=== PATIENT | female | born 2000 | race Caucasian/White ===

== ENCOUNTER 2024-08-26 07:32 | Inpatient (IN) ==
--- OUTSIDE RECORDS SUMMARY | 2024-08-26 07:37 | External Medical Summary | Summary of Care ---
Author Name Unknown Organization [facility] Address [address] [place] [address] Phone [phone] Care Team Providers Care Transport Tank Technician Name Role Phone Brianluis Vashti Shabnam MEAD Primary Care Provider Reason for Visit * Reason Onset Date Comments Appointment 08/24/2024 Encounter Details Date Type Department Care Team (Late st Contact Info) Description 08/24/2024 Telephone Gynecology/Obstetrics [facility] [address] [place] [address] Bryan Pretty MD [address] [place] [address] Appointment Allergies Active Allergy Reactions Criticality Noted Date Comments Justicia Adhatoda High 08/18/2024 Other Reaction(s): Throat swelling Peanut Oil 01/06/2001 Throat and eye swelling Peanut-Containing Drug Products 09/14/2019 Peanuts and tree nuts documented as of this encounter (statuses as of 08/24/2024) Medications valACYclovir HCl 1 GM Oral Tablet (Valtrex)Indicatio ns: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 21 Tablet 5 3 Active Ventolin HFA 108 (90 Base) MCG/ACT Inhalation Aerosol Solution Inhale 2 Puffs by mouth every 4 hours as needed for Wheezing. 18 g 3 4 Active EPINEPHrine 0.3 MG/0.3ML Injection Solution Auto-injector (Autoinjector)Marysol cations:Allergy to peanuts USE ONE INJECTION INTO THIGH FOR SEVERE ALLERGIC REACTION. READ DIRECTIONS. GO TO THE ER 2 Each 5 4 Active + Complete Multi 0.267 & 373 MG Oral Therapy Pack Take 1 Tablet by mouth every evening. 30 Each 11 4 Active Ondansetron 4 MG Oral Tablet Disintegrating (Zofran)Indication s: related nausea, antepartum Place 1 Tablet on tongue every 8 hours as needed for Nausea. dissolve on tongue. 30 Tablet 1 4 Active Docusate Sodium 100 MG Oral Capsule (Colace) Take 1 Capsule by mouth in the morning and 1 Capsule before bedtime. Active Famotidine 20 MG Oral Tablet (Pepcid) Take 1 Tablet by mouth in the morning and 1 Tablet before bedtime. 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 @ [facility] Dysplasia of cervix, low grade (JONE 1) 4 Overview (04/07/2024): Repeat pap 2024 Supervision of normal first 01/27/2024 Maternal asthma complicating 4 URI with cough and congestion 12/26/2023 Acne vulgaris 11/06/2023 Abdominal bloating with cramps 11/06/2023 Diarrhea 11/06/2023 Moderate persistent asthma without complication 09/28/2022 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 Estimated Date of Delivery Comme nts Yes 08/29/2024 Based on last me nstrual period of 11/23/2023 (Exact Date) documented as of this encounter (statuses as of 08/24/2024) Resolved Problems Problem Noted Date Diagnosed Date Resolved Date LGSIL on Pap smear of cervix 02/03/2024 04/07/2024 Less than 8 weeks gestation of 12/26/2023 01/27/2024 Moderate persistent asthma w ith acute exacerbation 02/25/2020 09/28/2022 Malaise and fatigue 02/25/2020 04/16/20 Close exposure to COVID-19 virus 02/25/2020 10/07/2020 Tree nut allergy 01/27/2019 04/16/2020 Mild intermittent asthma 01/12/2019 Mixed rhinitis 10/21/2017 04/16/2020 Asthma, mild persistent 08/27/201307/09 Anaphylaxis 05/25/2013 07/31/2018 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 ADVANCE DIRECTIVE INFORMATION 07/05/2005 07/31/2018 Overview (07/05/2005): Not applicable (under age of 18) Headache 11/23/2004 07/31/2018 Overview (09/28/2015): ICD-10 update of inactive term NONALLERGIC RHINITIS 11/23/2004 018 Chronic sinusitis 11/23/2004 07/31/2018 documented as of this encounter (statuses as of 08/24/2024) Immunizations Name Administration Dates Next Due COVID-19 mRNA, LNP-s, No Pre serve, 2-Dose Series ([employer]) 04/28/2021,04/06/2021 HPV Vaccine, 4-Valent 07/17/2010,03/14/2010,070 01/2010 Meningococcal Conjugate Vacc ine (Menactra/Menveo) 01/26/2015,01/11/2010 PPD 02/02/2020 Pneumococcal Polysaccharide PPV23 (Pneumovax) 07/31/2018 Seasonal Influenza Vac., MDV , IM, 0.5 mL (Fluzone) 04/13/2014,05/04/2011,04/20/2010,04/15,04/13/2008,06/12/2007,05/15/2007 Seasonal Influenza, PF, 6 M & above, IM , (FluLaval or Fluzone) 04/14/2020,05/12/2019,04/01/2018,03/27 Seasonal Influenza, Quadriva lent, No Preserve, IM 04/17/2016,04/18/2015 TDAP (age 10 and older)(Boostrix) 02/02/2020 TDAP, Age 7 and older, IM (Adacel) 06/18/2024, Varicella Vaccine (Chicken Pox) 02/07/2007 documented as of this encounter Social History Tobacco Use Types Packs/Day Years Used Date Smoking Tobacco: Never Passive Smoke Exposure: Never Smokeless Tobacco: Never Comments:no passive smoke Alcohol Use Standard Drinks/Week Comments Not Currently 0 (1 standard drink = 0.6 oz pur e alcohol) PHQ-2 Answer Date Recorded PHQ Adult Total Score 0 10/27/2020 Hunger Vital Sign Answer Date Recorded Within the past 12 months, y ou worried that your food would run out before you got the money to buy more. Never true 11/06/19 24 Within the past 12 months, t he food you bought just didn't last and you didn't have money to get more. Never true 11/06/2023 Ages [place] Depression Scale Answer Date Recorded Ages [place] Depression Scale Total 0 01/27/2024 The thought of harming myself has occurred to me . Never 01/27/2024 Childcare Answer Date Recorded Do you feel overwhelmed with taking care of a child, family member or friend? No 11/06/2023 Does your family need help f inding childcare? (Household - for ages 0-17 years) Not on file 11/06/2023 Clothing Answer Date Recorded Have you been unable to get clothing when it was really needed? No 11/06/2023 Is your family able to get c lothes or diapers when needed? (Household - for ages 0-17 years) Not on file 11/06/2023 Personal Safety Answer Date Recorded Do you feel unsafe or have concerns for your saf ety? No 11/06/2023 Do you have concerns for you r family's safety? (Household - for ages 0-17 years) Not on file 11/06/2023 Utilities Answer Date Recorded Do you have trouble paying y our heating, water, or electric bill? No 11/06/2023 Is your family able to pay t he heat, water, or electric bill? (Household - for ages 0-17 years) Not on file 11/06/2023 Does your family have access to good internet? (Household - for ages 0-17 years) Not on file 11/06/2023 Employment Status Answer Date Recorded Are you unemployed or without regular income? No 11/06/2023 Does the household have a re gular source of income? (Household - for ages 0-17 years) Not on file 11/06/2023 Social Connections Answer Date Recorded How often do you feel lonely or isolated from th ose around you? Never 11/06/2023 Financial Resource Strain Answer Date R ecorded Do you have any trouble payi ng for your medications, or do you think you might in the future? No 11/06/2023 Does your family have troubl e paying for medicine? (Household - for ages 0-17 years) Not on file 11/06/2023 Transportation Needs Answer Date Record ed READ ONLY Do you have troubl e getting a ride to medical visits or work? Never True 11/06/2023 Does your family have a hard time getting a ride to doctors visits? (Household - for ages 0-17 years) Not on file 11/06/2023 Has lack of transportation k ept you from medical appointments, meetings, work, or from getting things needed for daily living? Check all that apply. (Adult - for ages 18 years and over) Not on file 11/06/2023 Do you (or your family) have trouble finding or paying for a ride (transportation)? (Household - for ages 0-17 years) Not on file 11/06/2023 Housing Stability Answer Date Recorded Do you currently live in a s helter or have no steady place to sleep at night? No 11/06/2023 READ ONLY Do you think you a re at risk of becoming homeless? No 11/06/2023 Does your family worry about paying for your home or becoming homeless? (Household - for ages 0-17 years) Not on file 0 11/06/2023 Are you homeless or worried that you might be in the future? (Adult - for ages 18 years and over) Not on file Are you (or your family) carina eless or worried that you might be in the future? (Household - for ages 0-17 years) Not on file Food Insecurity Answer Date Recorded Do you need food for this week? No 11/06/2023 Are you able to get enough f ood for your family? (Household - for ages 0-17 years) Not on file 11/06/2023 Does your family need food t his week? (Household - for ages 0-17 years) Not on file 11/06/2023 Do you always have enough fo od for your family? (Household - for ages 0-17 years) Not on file 11/06/2023 Food Insecurity Answer Date Recorded Within the past 12 months, y ou worried that your food would run out before you got the money to buy more. Never true 11/06/19 24 Within the past 12 months, t he food you bought just didn't last and you didn't have money to get more. Never true 11/06/2023 Do you need food for this week? 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 IOL moved to 08/26/24. TC to patient and she is agreeable, aware of possibility of being bumped dt early elective induction, she understands. She will keep appointment as scheduled for tomorrow. documented in this encounter Plan of Treatment Upcoming Encounters Date Type Department Care Team (Late st Contact Info) Description 08/25/2024 8:30 AM EST Office Visit Gynecology/Obstetrics [facility] [address] [place] [address] Jacqueline Rm CRNP [address] [place] [phone] Health Maintenance Due Date Last Done Comments Pneumococcal Vaccine: Pediatrics (0 to 5 Years) and At-Risk Patients (6 to 18 Years and 19+ Years) (2 of 2 - PCV) 07/31/2019 07/31/2018 COVID-19 Vaccine (3 - Pfizer risk series) 05/26/2021 04/28/2021, 04/06/2021 Depression Screening 10/27/2021 10/27/2020 Influenza Vaccine (FLU shot) (#1) 2024 04/14/2020, 05/12/2019, 04/01/2018, Additional history exists Pap Smear 01/26/2027 01/27/2024 DTap/Tdap Vaccines (9 - Td or Tdap) 06/18/2034 06/18/2024, 02/02/2020, 01/11/2010, Additional history exists Hepatitis B Vaccine Completed 05/19/1999, 1998, 1998 HPV (Gardasil) Vaccine Completed 1, 03/14/2010, 01/11/2010 MENINGOCOCCAL (MENACTRA/MENVEO) Completed 01/26/2015, 01/11/2010, 01/11/2010 Gonorrhea / Chlamydia Screen Discontinued 01/27/2024, 02/04/2020, 09/27/2016 Meningitis B Vaccine (Bexsero/Trumemba) Aged Out No longer eligible based on patient's age to complete this topic documented as of this encounter Goals Goal Patient Goal Type Associated Problems Recent Progress Patient-Stated? Author Reminders Care Plan OB Reminders No Too, Provider documented as of this encounter Medical Devices Not on filedocumented as of this encounter Additional Health Concerns Active Problems Noted Date Diagnosed Date OB Reminders 07/10/2024 documented as of this encounter Care Teams Transport Tank Technician Relationship Specialty Start Date End Date Vashti Bolden CRNP [address] [place] [phone] PCP - General Nurse Practitioner 03/22/21 documented as of this encounter
--- OUTSIDE RECORDS SUMMARY | 2024-08-26 07:37 | External Medical Summary | Summary of Care ---
Author Name Unknown Organization [facility] Address [address] [place] [address] Phone [phone] Care Team Providers Care Refractory Specialist Name Role Phone Vashti Bolden Primary Care Provider Reason for Visit * Reason Onset Date Comments Test Results 08/21/2024 Encounter Details Date Type Department Care Team (Late st Contact Info) Description 08/21/2024 Telephone Family Practice [facility] [address] [facility] [place] [phone] Vashti Bolden CRNP [address] [facility] [place] [address] Test Results Allergies Active Allergy Reactions Criticality Noted Date Comments Justicia Adhatoda High 08/18/2024 Other Reaction(s): Throat swelling Peanut Oil 01/06/2001 Throat and eye swelling Peanut-Containing Drug Products 09/14/2019 Peanuts and tree nuts documented as of this encounter (statuses as of 08/21/2024) Medications valACYclovir HCl 1 GM Oral Tablet [...] as of this encounter (statuses as of 08/21/2024) Active Problems Problem Noted Date Diagnosed Date 38 weeks gestation of 08/20/2024 Leukocytosis 08/20/2024 Carrier of group B Streptococcus 08/12/2024 INFORMATION 07/10/2024 Overview (07/10/2024): 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 Never true 11/06/2023 [place] Depression Scale Answer Date Recorded [place] Depression Scale Total 0 01/27/2024 The thought [...] encounter Miscellaneous Notes * Telephone Encounter - Vashti Bolden CRNP - 08/21/2024 3:00 PM EST Patient aware of labs results. No questions Katelyn, ERICA, ALYCE [facility] Family Medicine documented in this encounter Plan of Treatment Upcoming Encounters Date Type Department Care Team (Late st Contact Info) Description 08/25/2024 8:30 AM EST Office Visit Gynecology/Obstetrics [facility] [address] [place] [address] Jacqueline Rm CRNP [address] [place] [phone] Health Maintenance Due Date Last Done Comments [...] Author Reminders Care Plan OB Reminders No Myccharlottet, Provider documented as of this encounter Medical Devices Not on filedocumented as of this encounter Additional Health Concerns Active Problems Noted Date Diagnosed Date OB Reminders 07/10/2024 documented as of this encounter Care Teams Refractory Specialist Relationship Specialty Start Date End Date Vashti Bolden CRNP [address] [place] [address] PCP - General Nurse Practitioner 03/22/21 documented as of this encounter
--- OUTSIDE RECORDS SUMMARY | 2024-08-26 07:37 | External Medical Summary | Summary of Care ---
Author Name Unknown Organization [facility] Address [address] [place] [address] Phone [phone] Prov[address] Care Court Security Officer Name Role Phone Vashti Bolden Primary Care Provider Reason for Visit * Reason Comments Emergency Department Follow-Up Pt here f or an ER f/u from [facility] from 08/18/24 for chest pain & shortness of breath. Pt still not feeling better. Encounter Details Date Type Department Care Team (Late st Contact Info) Description 08/20/2024 3:20 PM EST Office Visit Family Practice [facility] [address] [facility] [place] [address] Vashti Bolden CRNP [address] [facility] [place] [address] Chest pain, unspecified type*; Shortness of breath; Maternal asthma complicating ; Leukocytosis, unspecified type; 38 weeks gestation of Allergies Active Allergy Reactions Criticality Noted Date [...] 1 Tablet before bedtime. 21 Tablet 5 09/29/19 23 Active Ventolin HFA 108 (90 Base) MCG/ACT Inhalation Aerosol Solution Inhale 2 Puffs by mouth every 4 hours as needed for Wheezing. 18 g 3 11/06/19 24 Active EPINEPHrine 0.3 MG/0.3ML Injection Solution Auto-injector (Autoinjector)Marysol cations:Allergy to peanuts USE ONE INJECTION INTO THIGH FOR SEVERE ALLERGIC REACTION. READ DIRECTIONS. GO TO THE ER 2 Each 5 11/06/19 24 Active + Complete Multi 0.267 & 373 MG Oral Therapy Pack Take 1 Tablet by mouth every evening. 30 Each 11 11/06/19 24 Active Ondansetron 4 MG Oral Tablet Disintegrating (Zofran)Indication s: related nausea, antepartum Place 1 Tablet on tongue every 8 hours as needed for Nausea. dissolve on tongue. 30 Tablet 1 02/24/20 24 Active Docusate Sodium 100 MG Oral Capsule (Colace) Take 1 Capsule by mouth in the morning and 1 Capsule before bedtime. Active Famotidine 20 MG Oral Tablet (Pepcid) Take 1 Tablet by mouth in the morning and 1 Tablet before bedtime. 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 Never true 11/06/2023 Enterprise Depression Scale Answer Date Recorded Enterprise Depression Scale Total 0 01/27/2024 The thought [...] on file documented as of this encounter Last Filed Vital Signs Vital Sign Reading Time Taken Comments Blood Pressure 107/76 08/20/2024 3:28 PM EST Pulse 108 08/20/2024 3:28 PM EST Temperature 37 C (98.6 F) 08/20/2024 3:28 PM EST Respiratory Rate 16 08/20/2024 3:28 PM EST Oxygen Saturation 98% 08/20/2024 3:28 PM EST Inhaled Oxygen Concentration - - Weight 77.7 kg (171 lb 6.4 oz) 08/20/2024 3:28 P M EST Height 162.6 cm (5' 4") 08/20/2024 3:28 PM EST Body Mass Index 29.42 08/20/2024 3:28 PM EST documented in this encounter Progress Notes * Vashti Bolden CRNP - 08/20/2024 3:47 PM EST URI Family Medicine Visit CC: Chief Complaint Patient presents with Emergency Department Follow-Up Pt here for an ER f/u from [facility] from 08/18/24 for chest pain & shortness of breath. Pt still notfeeling better. History of Present Illness: Paxton Tabares is a 23 year old female presenting for URI symptoms. She has had increased sob, terrible cough that started this am. She had ER visit with chest x ray, chest CT and labs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 Tobacco Use Smoking status: Never Passive exposure: Never Smokeless tobacco: Never Tobacco comments: no passive smoke Vaping Use Vaping status: Never Used Substance and Sexual Activity Alcohol use: Not Currently Drug use: No Sexual activity: Yes Partners: Male Other Topics Concern Not on file Social History Narrative [employer] [place] INFORMATION ENIVIRONMENTAL HISTORY: House: Two Story Type of Heating System: Electric Air Conditioning: Yes Bedrooms and Living room Basement: Unfinished, Dampness, Dehumidifier and No evidence mold, mildew Home have cockroaches: No Irritants in the home: Passive Smoke and Scented Candles Patient's bedroom: FLOOR: second TYPE OF MATTHIAS: Carpeting Beds: AMOUNT : 1 TYPE OF BEDS: Mattress and Box spring Pillows: AMOUNT: 1 TYPE OF PILLOWS: Synthetic (hypoallergenic, polyester) Bedroom contains: Stuffed animals, Toys, Bookshelves/Books and Collectibles (faviola nacs) Pets: 1 dog(s); 1 rabbit Lives on a farm: No Not missing excessive school because of allergy symptoms. Entered By: Jose Smith MD 05/25/2013 Social Needs Financial Resource Strain: Low Risk (11/06/2023) Financial Resource Strain Do you have any trouble paying for your medications, or do you think you might in the future? (Adult - for ages 18 years and over): No Does your family have trouble paying for medicine? (Household - for ages 0-17 years): Not on file Food Insecurity: No Food Insecurity (11/06/2023) Food Insecurity Worried About Running Out of Food in the Last Year: Never true Ran Out of Food in the Last Year: Never true Do you need food for this week? (Adult - for ages 18 years and over): No Transportation Needs: No Transportation Needs (11/06/2023) Transportation Needs Do you have trouble getting a ride to medical visits or work? (Adult - for ages 18 years and over):Never True Does your family have a hard time getting a ride to doctors visits? (Household - for ages 0-17 years): Not on file Has lack of transportation kept you from medical appointments, meetings, work, or from getting things needed for daily living? Check all that apply. (Adult - for ages 18 years and over): Not on file Do you (or your family) have trouble finding or paying for a ride (transportation)? (Household - for ages 0-17 years): Not on file Social Connections: Socially Integrated (11/06/2023) Social Connections How often do you feel lonely or isolated from those around you? (Adult - for ages 18 years and over): Never Housing Stability: Low Risk (11/06/2023) Housing Stability Do you currently live in a senior care or have no steady place to sleep at night? (Adult - for ages 18 years and over): No Do you think you are at risk of becoming homeless? (Adult - for ages 18 years and over): No Does your family worry about paying for your home or becoming homeless? (Household - for ages 0-17 years): Not on file Are you homeless or worried that you might be in the future? (Adult - for ages 18 years and over): Not on file Are you (or your family) homeless or worried that you might be in the future? 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 Ondansetron 4 MG Oral Tablet Disintegrating (Zofran) Place 1 Tablet on tongue every 8 hours as needed for Nausea. dissolve on tongue. 30 Tablet 1 EPINEPHrine 0.3 MG/0.3ML Injection Solution Auto-injector (Autoinjector) USE ONE INJECTION INTO THIGH FOR SEVERE ALLERGIC REACTION. READ DIRECTIONS. GO TO THE ER 2 Each 5 + Complete Multi 0.267 & 373 MG Oral Therapy Pack Take 1 Tablet by mouth every evening. 30 Each 11 Ventolin HFA 108 (90 Base) MCG/ACT Inhalation Aerosol Solution Inhale 2 Puffs by mouth every 4 hours as needed for Wheezing. 18 g 3 valACYclovir HCl 1 GM Oral Tablet (Valtrex) Take 1 Tablet by mouth in the morning and 1 Tablet at noon and 1 Tablet before bedtime. 21 Tablet 5 No current facility-administered medications for this visit. Review of patient's allergies indicates: Allergen Reactions Justicia Adhatoda Other Reaction(s): Throat swelling Peanut Oil Throat and eye swelling Peanut-Containing Drug Products Peanuts and tree nuts Most Recent Immunizations Administered Date(s) Administered COVID-19 mRNA, LNP-s, No Preserve, 2-Dose Series (Akosha) 04/28/2021 DTaP - Dipth/Tet/Acell Pertussis (Infanrix), Peds 01/21/2004 HIB PRP-T, 4 Dose, PF, IM (Hiberix, ActHib) 11/17/1999 HPV Vaccine, 4-Valent 07/17/2010 Hepatitis B, 0-19 yrs 05/19/1999 IPV - Polio Virus Vaccine (Inact) 01/21/2004 MMR - Measles/Mumps/Rubella Vaccine 01/21/2004 Meningococcal Conjugate Vaccine (Menactra/Menveo) 01/26/2015 PPD 02/02/2020 Pneumococcal Polysaccharide PPV23 (Pneumovax) 07/31/2018 Seasonal Influenza Vac., MDV, IM, 0.5 mL (Fluzone) 04/13/2014 Seasonal Influenza, PF, 6 M & above, IM , (FluLaval or Fluzone) 04/14/2020 Seasonal Influenza, Quadrivalent, No Preserve, IM 04/17/2016 TDAP (age 10 and older)(Boostrix) 02/02/2020 TDAP, Age 7 and older, IM (Adacel) 06/18/2024 Varicella Vaccine (Chicken Pox) 02/07/2007 Review of Systems: Review of Systems Constitutional: Positive for fatigue. Respiratory: Positive for cough and shortness of breath. Cardiovascular: Positive for chest pain. Neurological: Positive for headaches. Negative for dizziness and syncope. Physical Exam: BP 107/76 (BP Site: Left Arm, BP Position: Sitting, BP Cuff Size: Regular) | Pulse 108 | Temp 98.6 F (37 C) (Tympanic) | Resp 16 | Ht 5' 4" (1.626 m) | Wt 171 lb 6.4 oz (77.7 kg) | LMP 11/23/2023(Exact Date) | SpO2 98% | BMI 29.42 kg/m | BSA 1.87 m Physical Exam HENT: Head: Normocephalic. Cardiovascular: Rate and Rhythm: Normal rate and regular rhythm. Pulmonary: Effort: Pulmonary effort is normal. Breath sounds: Normal breath sounds. Neurological: General: No focal deficit present. Mental Status: She is alert and oriented to person, place, and time. Psychiatric: Mood and Affect: Mood normal. Behavior: Behavior normal. Thought Content: Thought content normal. Judgment: Judgment normal. Assessment and Plan: 1. Chest pain, unspecified type (Primary) With laying down Currently 38 weeks CTPE negative Duplex ultrasound negative Chest x ray clear Hx of gerd- add pepcid- med use and precautions reviewed 2. Shortness of breath Feels tightness but not improved with neb Lungs clear Suspected realted to pressure from 3. Maternal asthma complicating CONTINUE ALBUTEROL PRN 4. Leukocytosis, unspecified type SUSPECTED related to recheck - CBC WITH WBC DIFFERENTIAL AND ANEMIA REFLEX WORKUP; Future 5. 38 weeks gestation of FEELING MOVEMENT NO DISCHARGE OR CRAMPING I have advised the patient to call our office incase of any worsening or new symptoms. A total of 40 minutes were spent with the patient, more than half in [id number] explanation and discussion of the condition and treatment and answering questions. Katelyn, ERICA, [facility] Family Medicine documented in this encounter Plan of Treatment Upcoming Encounters Date Type Department Care Team (Late st Contact Info) Description 08/25/2024 8:30 AM EST Office Visit Gynecology/Obstetrics [facility] [address] [place] [address] Jacqueline Rm CRNP [address] [facility] [place] [address] Health Maintenance Due Date Last Done Comments [...] Author Reminders Care Plan OB Reminders No Mychart, Provider documented as of this encounter Medical Devices Not on filedocumented as of this encounter Visit Diagnoses Diagnosis Chest pain, unspecified type- Primary Shortness of breath Maternal asthma complicating Other current maternal conditions classifiable elsewhere, complicating , childbirth, or the puerperium, unspecified as to episode of care Leukocytosis, unspecified type 38 weeks gestation of state, incidental documented in this encounter Additional Health Concerns Active Problems Noted Date Diagnosed Date OB Reminders 07/10/2024 documented as of this encounter Care Teams Court Security Officer Relationship Specialty Start Date End Date Vashti Bolden CRNP [address] [place] [address] PCP - General Nurse Practitioner 03/22/21 documented as of this encounter
--- OUTSIDE RECORDS SUMMARY | 2024-08-26 07:37 | External Medical Summary | Summary of Care ---
Author Name Unknown Organization [facility] Address [address] [place] [address] Phone [phone] Care Team Providers Care Mill Attendant Name Role Phone Vashti Bolden Primary Care Provider Reason for Visit * Reason Comments Return Visit Encounter Details Date Type Department Care Team (Late st Contact Info) Description 08/25/2024 8:30 AM EST [facility] [address] [place] [address] BackerJacqueline CRNP [address] [place] [address] Encounter for supervision of normal first in third trimester*; Maternal asthma complicating ; INFORMATION; Carrier of group B Streptococcus Allergies Active Allergy Reactions Criticality Noted Date Comments Lorainea Adhremigioda High 08/18/2024 Other Reaction(s): Throat swelling Peanut Oil 01/06/2001 Throat and eye swelling Peanut-Containing Drug Products 09/14/2019 Peanuts and tree nuts documented as of this encounter (statuses as of 08/25/2024) Medications valACYclovir HCl 1 GM Oral Tablet [...] as of this encounter (statuses as of 08/25/2024) Active Problems Problem Noted Date Diagnosed Date 38 weeks gestation of 08/20/2024 Leukocytosis 08/20/2024 Carrier of group B Streptococcus 08/12/2024 INFORMATION 07/10/2024 Overview (07/10/2024): 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 Never true 11/06/2023 Woden Depression Scale Answer Date Recorded Woden Depression Scale Total 0 01/27/2024 The thought [...] No 11/06/2023 Does the household have a [facility] source of income? (Household - for ages [...] Sign Reading Time Taken Comments Blood Pressure 104/70 08/25/2024 8:34 AM EST Pulse - - Temperature - - Respiratory Rate - - Oxygen Saturation - - Inhaled Oxygen Concentration - - Weight 79.8 kg (176 lb) 08/25/2024 8:34 AM EST Height - - Body Mass Index 30.21 08/20/2024 3:28 PM EST documented in this encounter Progress Notes * Jacqueline Rm CRNP - 08/25/2024 8:44 AM EST 39w3d Baby is moving well. No regular ctx or LOF/bleeding. Respiratory symptoms mostly the same, does have a daily inhaler to use. Reports WBCs have come down. Well-appearing in the office. Induction is tomorrow, discussed what to expect. Cephalic, EFW 6.5 lbs per Marcos's. Return , call sooner prn. ALYCE Morley * Rosalind Salmon LPN - 08/25/2024 8:34 AM EST 39w3d Deneis vaginal bleeding/rom + movement No new concerns documented in this encounter Plan of Treatment Upcoming Encounters Date Type Department Care Team (Late st Contact Info) Description 09/17/2024 11:30 AM EDT Telemedicine [facility] [address] [place] [address] Olimpia Lopez CRNP [address] [place] [address] 10/06/2024 9:00 AM EDT Office Visit [facility] [address] [place] [address] Olimpia Lopez CRNP [address] [place] [address] Health Maintenance Due Date Last Done Comments [...] Author Reminders Care Plan OB Reminders No Ros[place]art, Provider documented as of this encounter Medical Devices Not on filedocumented as of this encounter Visit Diagnoses Diagnosis Encounter for supervision of normal first in third trimester- Primary Supervision of normal first Maternal asthma complicating Other current maternal conditions classifiable elsewhere, complicating , childbirth, or the puerperium, unspecified as to episode of care INFORMATION Carrier of group B Streptococcus Carrier or suspected carrier of Group B streptococcus documented in this encounter Additional Health Concerns Active Problems Noted Date Diagnosed Date OB Reminders 07/10/2024 documented as of this encounter Care Teams Mill Attendant Relationship Specialty Start Date End Date Vashti Bolden CRNP [address] [place] [address] PCP - General Nurse Practitioner 03/22/21 documented as of this encounter
--- OUTSIDE RECORDS SUMMARY | 2024-08-26 07:37 | External Medical Summary | Summary of Care ---
Author Name Unknown Organization [facility] Address [address] [place] [address] Phone [phone] Care Team Providers Care Fulling Mill Operator Name Role Phone Yuan Vashti Shabnam MEAD Primary Care Provider Reason for Visit * Reason Comments Outpatient Testing Encounter Details Date Type Department Care Team (Late st Contact Info) Description 08/20/2024 4:20 PM EST Laboratory Laboratory, 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 Never true 11/06/2023 [place] Depression Scale Answer Date Recorded [place] Depression Scale Total 0 01/27/2024 The thought [...] on file documented as of this encounter Plan of Treatment Upcoming Encounters Date Type Department Care Team (Late st Contact Info) Description 08/25/2024 8:30 AM EST [facility] [address] [place] [address] Backer, ALYCE [place] [address] [place] [address] Health Maintenance Due Date Last Done Comments Pneumococcal Vaccine: Pediat rics (0 to 5 Years) and At-Risk Patients (6 to 18 Years and 19+ Years) (2 of 2 - PCV) 07/31/2019 07/31/2018 COVID-19 Vaccine (3 - Pfizer risk series) 05/26/2021 04/28/2021, 04/06/2021 Depression Screening 10/27/2021 10/27/2020 Influenza Vaccine (FLU shot) (#1) 2024 04/14/2020, 05/12/2019, 04/01/2018, Additional history exists Pap Smear 01/26/2027 01/27/2024 DTap/Tdap Vaccines (9 - Td o r Tdap) 06/18/2034 06/18/2024, 02/02/2020, 01/11/2010, Additional history exists Hepatitis B Vaccine Completed 05/19/1999, 1998, 1998 HPV (Gardasil) Vaccine Completed 1, 03/14/2010, 01/11/2010 MENINGOCOCCAL (MENACTRA/MENVEO) Completed 01/26/2015, 01/11/2010, 01/11/2010 Gonorrhea / Chlamydia Screen Discontinued , 02/04/2020, 09/27/2016 documented as of this encounter Goals Goal Patient Goal Type Associated Problems Recent Progress Patient-Stated? Author Reminders Care Plan OB Reminders No Mychart, Provider documented as of this encounter Medical Devices Not on filedocumented as of this encounter Procedures Procedure Name Priority Date/Time Associated Diagnosis Comments ANEMIA REFLEX CHEMISTRY HOLD Routine 08/20/2024 4:20 PM EST Leukocytosis, unspecified type ANEMIA CBC Routine 08/20/2024 4:20 PM EST Leukocytosis, unspecified type DIFFERENTIAL, AUTOMATED Routine 08/20/2024 4:20 PM EST Leukocytosis, unspecified type DIFFERENTIAL, AUTOMATED Routine 08/20/2024 4:20 PM EST Leukocytosis, unspecified type documented in this encounter Results * ANEMIA REFLEX CHEMISTRY HOLD (08/20/2024 4:20 PM EST) Blood Venous blood specimen / Unknown Venipuncture / Unknown 08/20/2024 4:20 PM EST 08/20/2024 4:20 PM EST us Vashti Buenrostromaureen MEAD LAB BLOOD ORDERABLES F inal Result [facility] [address] [place] [address] * (ABNORMAL) DIFFERENTIAL, AUTOMATED (08/20/2024 4:20 PM EST) WBC 10.83(H) 4.00 - 10.80 K/uL 08/20/2024 11:21 PM EST [facility] Neutrophils % 64.8 40.0 - 75.0 % 08/20/2024 11:21 PM EST [facility] Lymphocytes % 24.5 18.0 - 42.0 % 08/20/2024 11:21 PM EST [facility] Monocytes % 6.6 1.0 - 11.0 % 08/20/2024 11:21 PM EST [facility] Eosinophils % 1.4 0.0 - 6.0 % 08/20/2024 11:21 PM EST [facility] Basophils % 0.5 0.0 - 2.0 % 08/20/2024 11:21 PM EST [facility] Immature Granulocytes % 2.2(H) 0.0 - 2.0 % 08/20/2024 11:21 PM EST [facility] Absolute Neutrophils 7.02 1.80 - 7.70 K/uL 08/20/2024 11:21 PM EST [facility] Absolute Lymphocytes 2.65 1.00 - 4.80 K/ul 08/20/2024 11:21 PM EST [facility] Absolute Monocytes 0.72 0.00 - 1.10 K/uL 08/20/2024 11:21 PM EST [facility] Absolute Eosinophils 0.15 0.00 - 0.70 K/uL 08/20/2024 11:21 PM EST [facility] Absolute Basophils 0.05 0.00 - 0.20 K/uL 08/20/2024 11:21 PM EST [facility] Absolute Immature Granulocytes 0.24(H) 0.00 - 0.20 K/uL 08/20/2024 11:21 PM EST [facility] Blood Venous blood specimen / Unknown Venipuncture / Unknown 08/20/2024 4:20 PM EST 08/20/2024 4:20 PM EST us Vashti Shabnam MEAD LAB BLOOD ORDERABLES F inal Result [facility] [address] [place] [address] * (ABNORMAL) ANEMIA CBC (08/20/2024 4:20 PM EST) WBC 10.83(H) 4.00 - 10.80 K/uL 08/20/2024 11:21 PM EST [facility] RBC 4.16 3.85 - 5.15 M/uL 08/20/2024 11:21 PM EST [facility] HGB 12.8 12.0 - 15.3 g/dL 08/20/2024 11:21 PM EST [facility] Comment: Anemia reflex testing triggers on a HGB < 12.0 for Females and HGB < 13.0 for Males in accordance with the WHO Anemia Guidelines Anemia reflex testing triggers on a HGB < 12.0 for Females and HGB < 13.0 for Males in accordance with the WHO Anemia Guidelines HCT 39.5 36.0 - 45.2 % 08/20/2024 11:21 PM EST [facility] MCV 95.0 81.5 - 97.5 fL 08/20/2024 11:21 PM EST [facility] MCH 30.8 27.0 - 34.0 pg 08/20/2024 11:21 PM EST [facility] MCHC 32.4 32.0 - 36.0 g/dL 08/20/2024 11:21 PM EST [facility] RDW 13.0 11.5 - 15.5 % 08/20/2024 11:21 PM EST [facility] PLT 203 140 - 400 K/uL 08/20/2024 11:21 PM EST [facility] MPV 11.5 6.6 - 11.1 fL 08/20/2024 11:21 PM EST [facility] nRBCs 0 <=0 /100 WBCs 08/20/2024 11:21 PM EST [facility] Blood Venous blood specimen / Unknown Venipuncture / Unknown 08/20/2024 4:20 PM EST 08/20/2024 4:20 PM EST us Vashti MEAD LAB BLOOD ORDERABLES F inal Result [facility] [address] [facility] [place] [address] documented in this encounter Visit Diagnoses Diagnosis Leukocytosis, unspecified type documented in this encounter Additional Health Concerns Active Problems Noted Date Diagnosed Date OB Reminders 07/10/2024 documented as of this encounter Care Teams Fulling Mill Operator Relationship Specialty Start Date End Date Vashti Bolden CRNP [address] [place] [address] PCP - General Nurse Practitioner 03/22/21 documented as of this encounter
--- OUTSIDE RECORDS SUMMARY | 2024-08-26 07:38 | External Medical Summary | Summary of Care ---
Author Name Unknown Organization [facility] Address [address] [place] [address] Phone [phone] Care Team Providers Care Animal Care Technician Name Role Phone Vashti Bolden Primary Care Provider Reason for Visit * Reason Comments Return Visit Encounter Details Date Type Department Care Team (Late st Contact Info) Description 08/18/2024 8:30 AM EST Office Visit [facility]necology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 21 Tablet 5 09/29/19 23 Active Additional Information Patient not taking.Reported on 08/11/2024 Ventolin HFA 108 (90 Base) MCG/ACT Inhalation [...] tongue. 30 Tablet 1 02/24/20 24 Active Additional Information Patient not taking.Reported on 08/11/2024 Docusate Sodium 100 MG Oral Capsule (Colace) Take 1 Capsule by mouth in the morning and 1 Capsule before bedtime. 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 @ [facility] Dysplasia of cervix, low grade (JONE 1) 4 Overview (04/07/2024): Repeat pap 2024 Supervision of normal first 01/27/2024 Maternal asthma complicating URI with cough and congestion 12/26/2023 Acne vulgaris 11/06/2023 Abdominal bloating with cramps 11/06/2023 Diarrhea 11/06/2023 Moderate persistent asthma without complication 09/28/2022 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 Estimated Date of Delivery Comme nts Yes 08/29/2024 Based on last me nstrual period of 11/23/2023 (Exact Date) documented as of this encounter (statuses as of 08/18/2024) Resolved Problems Problem Noted Date Diagnosed Date Resolved Date LGSIL on Pap smear of cervix 02/03/2024 04/07/2024 Less than 8 weeks gestation of 12/26/2023 01/27/2024 Chest pain on exertion 05/30/202010/07 Moderate persistent asthma w ith acute exacerbation 02/25/2020 09/28/2022 Malaise and fatigue 02/25/2020 04/16/20 SOB (shortness of breath) 02/25/2020 Close exposure to COVID-19 virus 02/25/2020 10/07/2020 [...] as of this encounter (statuses as of 08/18/2024) Immunizations Name Administration Dates Next Due COVID-19 mRNA, LNP-s, No Pre serve, 2-Dose Series ([employer]) 04/28/2021,04/06/2021 HPV Vaccine, 4-Valent 07/17/2010,03/14/2010,07/0 01/2010 Meningococcal Conjugate Vacc ine (Menactra/Menveo) 01/26/2015,01/11/2010 [...] Packs/Day Years Used Date Smoking Tobacco: Never Smokeless Tobacco: Never Comments:no passive smoke [...] money to get more. Never true 11/06/2023 [place] Depression Scale Answer Date Recorded [place] Depression Scale Total 0 01/27/2024 The thought [...] No 11/06/2023 Does the household have a [facility] source [facility] income? (Household - for ages [...] Sign Reading Time Taken Comments Blood Pressure 114/68 08/18/2024 8:38 AM EST Pulse 128 08/18/2024 8:38 AM EST Temperature - - Respiratory Rate - - Oxygen Saturation 99% 08/18/2024 8:38 AM EST Inhaled Oxygen Concentration - - Weight - - Height 162.6 cm (5' 4") 08/18/2024 8:38 AM EST Body Mass Index - - documented in this encounter Progress Notes * Jacqueline Rm CRNP - 08/18/2024 9:06 AM EST 38w3d Baby moving well. No bleeding, leaking, ctx. Woke this morning with a significant cough and SOB. Not much relief with inhaler. Notes chest pressure/discomfort. No palpitations. Denies fevers at home, but feels achy all over. Normal pulse ox, normal work of breathing. Skin warm/pink. Tachycardic, regular heart rhythm. Decreased breath sounds at bases bilaterally. Discussed w/pt's PCP Carlo Bolden, no appts available in family practice. Recommend ED now for evaluation, pt agreeable. She feels comfortable driving herself and her [facility]will meet [facility] at [facility]. Declines ambulance. Left in stable condition to ED. ED and Dr Pretty made aware. ALYCE Morley * Gloria Reynolds LPN - 08/18/2024 8:35 AM EST 38w3d Woke up having a hard time breathing documented in this encounter Plan of Treatment Upcoming Encounters Date Type Department Care Team (Late st Contact Info) Description 08/25/2024 8:30 AM EST Office Visit [facility] [address] [place] [address] Jacqueline Rm CRNP [address] [place] [phone] Health Maintenance Due Date Last Done Comments [...] documented as of this encounter Care Teams Animal Care Technician Relationship Specialty Start Date End Date Vashti Bolden CRNP [address] [place] [phone] PCP - General Nurse Practitioner 03/22/21 documented as of this encounter
--- OUTSIDE RECORDS SUMMARY | 2024-08-26 07:38 | External Medical Summary | Summary of Care ---
Author Name Unknown Organization [facility] Address [address] [place] [address] Phone [phone] Care Team Providers Care Meat Cutter Apprentice Name Role Phone Vashti Bolden Primary Care Provider Reason for Visit * Reason Comments Non Stress Test Encounter Details Date Type Department Care Team (Late st Contact Info) Description 08/20/2024 10:00 AM EST Office Visit Gynecology/Obstetric s [facility] [address] [place] [address] BackerJacqueline CRNP [address] [place] [phone] Eduardo, Non Stress Tests Parmjit [address] [place] [phone] Encounter for supervision of normal first in third trimester*; Maternal asthma complicating ; INFORMATION; Carrier of group B Streptococcus; Hospital discharge follow-up Allergies Active Allergy Reactions Criticality Noted Date Comments Peanut Oil 01/06/2001 Throat and eye swelling Peanut-Containing Drug Products 09/14/2019 Peanuts and tree nuts documented as of this encounter (statuses as of 08/20/2024) Medications valACYclovir HCl 1 GM Oral Tablet [...] as of this encounter (statuses as of 08/20/2024) Active Problems Problem Noted Date Diagnosed Date Carrier of group B Streptococcus 08/12/2024 INFORMATION 07/10/2024 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 Never true 11/06/2023 [place] Depression Scale Answer Date Recorded [place] Depression Scale Total 0 01/27/2024 The thought [...] 11/06/2023 Does the household have a re lar source of income? (Household - for ages [...] Sign Reading Time Taken Comments Blood Pressure 106/70 08/20/2024 9:53 AM EST Pulse 101 08/20/2024 9:53 AM EST Temperature 36.7 C (98.1 F) 08/20/2024 9:53 AM ES T Respiratory Rate - - Oxygen Saturation 99% 08/20/2024 9:53 AM EST Inhaled Oxygen Concentration - - Weight 78.5 kg (173 lb) 08/20/2024 9:53 AM EST Height 162.6 cm (5' 4") 08/20/2024 9:53 AM EST Body Mass Index 29.7 08/20/2024 9:53 AM EST documented in this encounter Progress Notes * Jacqueline Rm CRNP - 08/20/2024 10:52 AM EST ASSESSMENT assessment with Non-stress Test completed on 08/20/2024 at 38.5 weeks gestation for ER/L&Dfollow up. heart baseline: 140 bpm Variability: Moderate Decelerations: absent Accelerations: present Contractions: Present x2 NST start time: 0958 NST stop time: 1046 NST strip reviewed, interpreted, and approved by OB provider, ALYCE Morley . NST strip stored in clinic storage file Pt still symptomatic, was in ED yesterday. Ruled out URI and PE/DVT. Pt scheduled with PCP today. ALYCE Morley documented in this encounter Nursing Notes * Muna Smith LPN - 08/20/2024 10:29 AM EST NST, ER f/u Very uncomfortable, whole body aches, headache. Continues feeling short of breath with talking. documented in this encounter Plan of Treatment Upcoming Encounters Date Type Department Care Team (Late st Contact Info) Description 08/20/2024 3:20 PM EST Office Visit Family Practice [facility] [address] [place] [phone] Vashti Bolden CRNP [address] [place] [phone] 08/25/2024 8:30 AM EST Office Visit Gynecology/Obstetrics [facility] [address] [place] [phone] Jacqueline Rm CRNP [address] [place] [phone] Health Maintenance Due Date Last Done Comments [...] or suspected carrier of Group B streptococcus Hospital discharge follow-up Other follow-up examination documented in this encounter Additional Health Concerns Active Problems Noted Date Diagnosed Date OB Reminders 07/10/2024 documented as of this encounter Care Teams Meat Cutter Apprentice Relationship Specialty Start Date End Date Vashti Bolden CRNP [address] [place] [phone] PCP - General Nurse Practitioner 03/22/21 documented as of this encounter
--- OUTSIDE RECORDS SUMMARY | 2024-08-26 07:38 | External Medical Summary ---
Author Name Unknown Address Unknown Organization K01:[facility] - [address] [place] [id number] Laboratory Report Ordering Provider Test Date Status MATT BELL 08/20/2024 16:20:17 Final Observation Date Value Abnormality Reference (Units ) Status WBC, Total 08/20/2024 16:20:17 10.83 Above high normal 4 .00-10.80 (K/uL) Final RBC 08/20/2024 16:20:17 4.16 3.85-5.15 (M/uL) Final Hemoglobin 08/20/2024 16:20:17 12.8 12.0-15.3 (g/dL) Final Anemia reflex testing trigge rs on a HGB < 12.0 for Females and HGB < 13.0 for Males in accordance with the WHO Anemia Guidelines
Anemia reflex testing triggers on a HGB < 12.0 for Females and HGB < 13.0 for Males in accordance with the WHO Anemia Guidelines HCT 08/20/2024 16:20:17 39.5 36.0-45.2 (%) Final MCV 08/20/2024 16:20:17 95.0 81.5-97.5 (fL) Final MCH 08/20/2024 16:20:17 30.8 27.0-34.0 (pg) Final MCHC 08/20/2024 16:20:17 32.4 32.0-36.0 (g/dL) Final RDW 08/20/2024 16:20:17 13.0 11.5-15.5 (%) Final Platelets 08/20/2024 16:20:17 203 140-400 (K /uL) Final MPV 08/20/2024 16:20:17 11.5 6.6-11.1 ( fL) Final Nucleated erythrocytes/100 leukocytes [Ratio] in Blood by Automated count 08/20/2024 16:20:17 0 <=0 (/100 WBCs) [facility] Performing Location [facility] - [address] [facility] [address]
--- OUTSIDE RECORDS SUMMARY | 2024-08-26 07:38 | External Medical Summary | Summary of Care ---
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 Dysplasia of cervix, low grade (JONE [...] mRNA, LNP-s, No Pre serve, 2-Dose Series ([employer]) 04/28/2021,04/06/2021 HPV Vaccine, 4-Valent 07/17/2010,03/14/2010,01/2010 Meningococcal Conjugate [...] money to get more. Never true 11/06/2023 [place] Depression Scale Answer Date Recorded [place] Depression Scale Total 0 01/27/2024 The thought [...] 18 years and over) Not on file 4 Are you (or your family) carina eless [...] Gynecology/Obstetrics [facility] [address] [place] [phone] Jacqueline Rm CRNP [address] [place] [address] Health Maintenance Due Date Last Done Comments [...] Procedure Name Priority Date/Time Associated Diagnosis Comments OUTSIDE LAB RESULTS 08/18/2024 OUTSIDE LAB RESULTS 08/18/2024 documented in this encounter Results * OUTSIDE LAB RESULTS (08/18/2024) 08/18/2024 us No Physician Data Unknown LABORATORY Final Result * OUTSIDE LAB RESULTS (08/18/2024) 08/18/2024 us No Physician Data Unknown LABORATORY Final Result documented in this encounter Additional Health Concerns Active Problems Noted Date Diagnosed Date OB Reminders 07/10/2024 documented as of this encounter Care Teams Package Sealer Relationship Specialty Start Date End Date Vashti Bolden CRNP [address] [place] [phone] PCP - General Nurse Practitioner 03/22/21 documented as of this encounter
--- OUTSIDE RECORDS SUMMARY | 2024-08-26 07:38 | External Medical Summary ---
Author Name Unknown Address Unknown Organization K01:[facility] [place] - [address] [facility] [place] [address] Laboratory Report Ordering Provider Test Date Status MATT BELL 08/20/2024 16:20:17 Final Observation Date Value Abnormality Reference (Units ) Status SYNC LEUKOCYTES IN BLOOD BY AUTOMATED COUNT 08/20/2024 16:20:17 10.83 Above high normal 4.00-10.80 (K/uL) Final Segs 08/20/2024 16:20:17 64.8 40.0-75.0 (%) Final Lymphs % 08/20/2024 16:20:17 24.5 18.0-42.0 (%) Final Monos 08/20/2024 16:20:17 6.6 1.0-11.0 (%) Final Eosinophils 08/20/2024 16:20:17 1.4 0.0-6.0 (%) Final Basos 08/20/2024 16:20:17 0.5 0.0-2.0 (%) Final Immature Granulocyte, Percent 08/20/2024 16:20:17 2.2 Above high normal 0.0-2.0 (%) Final Absolute Segs 08/20/2024 16:20:17 7.02 1.80-7.70 (K/uL) Final Lymphs, absolute 08/20/2024 16:20:17 2.65 1.00-4.80 (K/ul) Final Monos, Abs 08/20/2024 16:20:17 0.72 0.00-1.10 (K/uL) Final Eos, Abs 08/20/2024 16:20:17 0.15 0.00-0.70 (K/uL) Final Basos, Abs 08/20/2024 16:20:17 0.05 0.00-0.20 (K/uL) Final Immature Granulocytes, Number 08/20/2024 16:20:17 0.24 Above high normal 0.00-0.20 (K/uL) Final Performing Location LABORATORY [facility] [place] - [address] [facility] [address]
[2024-08-26] MEDS ORDERED: OXYTOCIN 30 UNITS/NSS 30 UNITS/500 ML BAG IV PRN (08:24)
[2024-08-26] MEDS ORDERED: LIDOCAINE 1% LOCAL 20 ML VIAL INFIL PRN (08:24)
[2024-08-26] MEDS ORDERED: CALCIUM CARBONATE 500 MG CHEWABLE TAB PO PRN (08:24)
[2024-08-26] MEDS: DINOPROSTONE 10 MG INSERT PV ONE (09:18)
[2024-08-26 09:22] LABS: Hematocrit (blood only) 36.1 % (37.0-47.0); Hemoglobin 12.4 g/dl (12.0-16.0); Mean Corpuscular Hemoglobin 30.8 pg (25.0-34.0); Mean Corpuscular Hgb Conc 34.3 g/dL (32.0-36.0); Mean Corpuscular Volume 89.6 fL (80.0-100.0); Mean Platelet Volume 11.4 fL (9.4-12.4); Platelet Count 196 K/uL (130-400); RDW Standard Deviation 42.3 fL (36.4-46.3); Red Blood Count 4.03 M/uL (4.20-5.40); White Blood Count 9.13 K/ul (4.8-10.8)
--- NOTE | 2024-08-26 09:38 | History & Physical Report ---
Date of Service August 26, 2024 Assessment & Plan (1) with 39 completed weeks gestation: Plan: 23-year-old at 39 weeks and 1 day gestation presenting today for scheduled induction of labor at term, Vital signs stable afebrile, GBS positive, Cervix unfavorable, heart rate reassuring, discussed the findings and informed and reassured about labor and what to expect, Cervidil is placed for cervical ripening, Will start penicillin when in labor, All questions were answered. (2) Asthma: (3) Encounter for induction of labor: (4) GBS (group B Streptococcus carrier), +RV culture, currently : Admission and Anticipated Discharge Date Admission Date: August 26, 2024 History of Present Illness Primary Care Provider: ALYCE Santillan Patient is a 23-year-old G1, P0 at 39 weeks and 1 day gestation who was admitted for scheduled induction of labor at term. She has no complaints other than being nervous and scared about labor. Denies contractions, leakage of fluid, vaginal bleeding. She reports good movements. Her has been uncomplicated except GBS positive. She had chest pain shortness of breath few days ago and presented to the ER where the workup was negative she was told that this could be asthma and anxiety related. She has not used her asthma inhaler for the last 5 years until last visit to the ER. Now she is using daily in the morning and she feels better. She denies any other medical problems nor surgeries. Allergies Allergy/AdvReac Type Severity Reaction Status Date / Time peanut Allergy Severe THROAT Verified 08/26/24 08:20 SWELLING tree nut Allergy Severe Throat Verified 08/26/24 08:20 swelling Home Medications Medication Instructions Recorded Confirmed Type epinephrine 0.3 mg/0.3 mL 0.3 mg IM DIRECTED PRN Allergic 03/16/21 08/26/24 History injection, auto-injector Reaction vitamins no.144-folic 2 tab PO HS 08/18/24 08/26/24 History acid 400 mcg chewable tablet () Patient History Medical History (Updated 08/26/24 @ 09:37 by Aspen Davila MD) GBS (group B Streptococcus carrier), +RV culture, currently Asthma Surgical History H/O knee surgery Hx of colonoscopy Social History Smoking Status: Never smoker Hx Alcohol Use: No Hx Substance Use: No Preferred Language: [place]ib[place] Beliefs That Will Affect Care: None marital status: Current Living Situation: Spouse Other Information That Helps Us Care for You: No Feels Safe at Home: Yes Safety Concerns: Feels Safe At This Time Assistive Devices: None GROUP MANAGER History No history of STDs, no history of chlamydia, gonorrhea, herpes. Review of Systems as per Subjective / HPI as per Subjective / HPI Physical Exam Constitutional: WD/WN, vitals as above well developed Gastrointestinal (Abdomen): normal bowel sounds, soft, nontender, no hepatosplenomegaly ( Gravid, Marcos 7 to 8 pounds) Genitourinary: normal external appearance OB Exam Abdomen: + vertex ( confirmed with ultrasound) Manual OB Exam: + cervical dilation (0), + c ervical effacement (0) and + station high OB Exam Monitor Tracing: + external uterine monitor used and + category I Results & Data Vital Signs (Past 12 Hours) Vital Signs Temp Pulse Resp BP 08/26/24 07:43 36.5 C 18 08/26/24 07:40 103 H 120/77 Laboratory Results Lab Results 08/26/24 Range/Units 08:55 WBC 9.13 (4.8-10.8) K/ul RBC 4.03 L (4.20-5.40) M/uL Hgb 12.4 (12.0-16.0) g/dl Hct 36.1 L (37.0-47.0) % MCV 89.6 (80.0-100.0) fL MCH 30.8 (25.0-34.0) pg MCHC 34.3 (32.0-36.0) g/dL RDW Std Deviation 42.3 (36.4-46.3) fL RDW Coeff of Luci 13.0 (11.5-14.5) % Plt Count 196 (130-400) K/uL MPV 11.4 (9.4-12.4) fL (2) Asthma Asthma severity: mild Asthma persistence: intermittent Asthma complication type: uncomplicated Qualified Code(s): J45.20 - Mild intermittent asthma, uncomplicated
[2024-08-26] MEDS: LACTATED RINGER'S 1,000 ML IV PRN (13:48)
[2024-08-26] MEDS: BUTORPHANOL TARTRATE 1 MG/ML VIAL IV PRN (18:43)
--- NOTE | 2024-08-26 18:44 | Obstetrical Progress Note ---
Date of Service August 26, 2024 Assessment & Plan Admission and Anticipated Discharge Date Admission Date: August 26, 2024 Subjective Patient is reevaluated. She has been having irregular contractions since this morning when the Cervidil was placed. They got more regular and painful for the last hour or so. She feels them every 2 minutes and pain is 6 out of 10. She is requesting pain medication. Vaginal exam, Cervidil is removed cervix is fingertip, softer, 50%, still posterior and high, patient is not tolerating the exam very well, heart rate category 1, toco is monitoring contractions every 1 to 2 minutes Continue to monitor closely, Stadol for pain and diarrhea related with contraction pattern Results & Data Vital Signs (Past 12 Hours) Vital Signs Temp Pulse Resp BP 08/26/24 16:33 18 08/26/24 16:33 37.0 C 18 08/26/24 16:32 96 H 08/26/24 16:32 105/60 08/26/24 12:46 16 08/26/24 12:46 37.2 C 08/26/24 12:46 100 H 08/26/24 12:46 117/67 08/26/24 07:43 36.5 C 08/26/24 07:40 103 H 120/77
[2024-08-26] MEDS: PENICILLIN GK 6 MU in SODIUM CHLORIDE 0.9% 250 ML IV STA (21:04)
[2024-08-26] MEDS: LIDOCAINE 2%/EPINEPHRINE 1:200,000 20 ML PF ONE (21:35)
[2024-08-26] MEDS: SODIUM CHLORIDE 0.9% PF INJ 10 ML VIAL ONE (21:35)
[2024-08-26] MEDS: BUPIVACAINE 0.25% PF 30 ML VIAL ONE (21:35)
[2024-08-26] MEDS: fentANYL 2 MCG/ML BUPIVacaine 0.125%-NSS 100ML BAG ONE (21:36)
[2024-08-26] MEDS: ePHEDrine sulfate 50 MG/ML AMP ONE (21:51)
[2024-08-26] MEDS: fentaNYL citrate PF 100 MCG/2 ML VIAL ONE (21:51)
[2024-08-26] MEDS ORDERED: diphenhydrAMINE Capsule 25 MG CAP PO PRN (22:27)
[2024-08-26] MEDS ORDERED: MELATONIN 3 MG TAB PO PRN (22:27)
--- NOTE | 2024-08-26 22:32 | Obstetrical Progress Note ---
Date of Service August 26, 2024 Assessment & Plan Admission and Anticipated Discharge Date Admission Date: August 26, 2024 Subjective Patient was very painful since surgery was taken out, received Stadol for pain which helped for an hour only and then asked for epidural for pain and received it without difficulty. Now she is comfortable. Vital signs stable afebrile, heart rate category 1, [place], contractions every 2 to 3 minutes since surgery was taking out, Vaginal exam, cervix is 1 to 2 cm, 50% effaced, head is -2 with a tight bulging bag, plan to start penicillin for GBS, augment contractions with low-dose Pitocin per protocol, Continue to monitor closely, All questions were answered. Results & Data Vital Signs (Past 12 Hours) Vital Signs Temp Pulse Resp BP Pulse Ox 08/26/24 22:26 100 08/26/24 22:26 95 H 08/26/24 22:21 99 08/26/24 22:21 85 08/26/24 22:19 92 H 08/26/24 22:19 117/82 08/26/24 22:16 98 08/26/24 22:16 96 H 08/26/24 22:11 98 08/26/24 22:11 98 H 08/26/24 22:06 97 08/26/24 22:06 94 H 08/26/24 22:04 99 H 08/26/24 22:04 122/81 08/26/24 22:01 97 08/26/24 22:01 98 H 08/26/24 21:58 85 08/26/24 21:58 112/77 08/26/24 21:56 97 08/26/24 21:56 92 H 08/26/24 21:53 113 H 08/26/24 21:53 116/82 08/26/24 21:51 98 08/26/24 21:51 111 H 08/26/24 21:49 96 H 08/26/24 21:49 122/83 08/26/24 21:46 98 08/26/24 21:46 117 H 08/26/24 21:42 121 H 08/26/24 21:42 116/79 08/26/24 21:41 98 08/26/24 21:41 117 H 08/26/24 21:40 102 H 08/26/24 21:40 119/83 08/26/24 21:38 98 H 08/26/24 21:38 118/83 08/26/24 21:36 98 08/26/24 21:36 97 H 08/26/24 21:31 99 08/26/24 21:31 95 H 08/26/24 21:26 100 08/26/24 21:26 111 H 08/26/24 21:21 97 08/26/24 21:21 90 08/26/24 21:16 98 08/26/24 21:16 96 H 08/26/24 21:11 98 08/26/24 21:11 116 H 08/26/24 21:06 99 08/26/24 21:06 104 H 08/26/24 21:02 92 H 08/26/24 21:02 128/89 08/26/24 21:01 98 08/26/24 21:01 83 08/26/24 18:56 18 08/26/24 18:56 36.8 C 18 08/26/24 18:56 108 H 08/26/24 18:56 116/87 08/26/24 18:44 88 08/26/24 18:44 113/83 08/26/24 16:33 18 08/26/24 16:33 37.0 C 18 08/26/24 16:32 96 H 08/26/24 16:32 105/60 08/26/24 12:46 16 08/26/24 12:46 37.2 C 16 08/26/24 12:46 100 H 08/26/24 12:46 117/67
[2024-08-26] MEDS: OXYTOCIN 30 UNITS/NSS 30 UNITS/500 ML BAG IV PRN (22:48)
[2024-08-27] MEDS: PENICILLIN GK 3 MU in DEXTROSE 5% 100 ML IV PRN (00:59)
[2024-08-27] MEDS: ONDANSETRON INJ 2 MG/ML 2 ML VIAL IV PRN (01:05)
[2024-08-27] MEDS ORDERED: NALOXONE HCL 1 MG in SODIUM CHLORIDE 0.9% 1,000 ML IV PRN ×2 (07:05→07:28)
[2024-08-27] MEDS ORDERED: NALOXONE HCL 0.4 MG/1 ML VIAL/CARP IV PRN ×2 (07:05→07:28)
[2024-08-27] MEDS ORDERED: NALBUPHINE HCL INJ 10 MG/ML AMP IV PRN ×2 (07:05→07:28)
[2024-08-27] MEDS ORDERED: ePHEDrine sulfate 50 MG/ML AMP IV PRN ×2 (07:05→07:28)
[2024-08-27] MEDS: fentANYL 2 MCG/ML BUPIVacaine 0.125%-NSS 100ML BAG ONE (07:05)
[2024-08-27] MEDS ORDERED: ONDANSETRON INJ 2 MG/ML 2 ML VIAL IV PRN ×2 (07:05→07:28)
[2024-08-27] MEDS ORDERED: BUPIVACAINE 0.25% PF 30 ML VIAL EPI PRN (07:05)
[2024-08-27] MEDS ORDERED: diphenhydrAMINE 50 MG/ML VIAL IV PRN ×2 (07:05→07:28)
[2024-08-27] MEDS ORDERED: LIDOCAINE 2% MPF LOCAL 5 ML VIAL EPI PRN (07:05)
[2024-08-27] MEDS ORDERED: fentaNYL citrate PF 100 MCG/2 ML VIAL EPI PRN (07:05)
[2024-08-27] MEDS ORDERED: SODIUM CHLORIDE 0.9% PF INJ 10 ML VIAL EPI PRN (07:05)
[2024-08-27] MEDS ORDERED: ROPIVACAINE 0.5% PF 5 MG/ML 20 ML VIAL EPI PRN (07:05)
[2024-08-27] MEDS: ACETAMINOPHEN 325 MG TAB PO PRN (07:11)
[2024-08-27] MEDS ORDERED: MoRPHine SULFATE PF 1 MG/ML 10 ML AMP/VIAL EPI ONE (07:28)
[2024-08-27] MEDS ORDERED: MoRPHine SULFATE 2 MG/ML CARP IV PRN (07:28)
[2024-08-27] MEDS ORDERED: NALOXONE HCL 0.08 MG in SYRINGE 1.8 ML IV PRN (07:28)
[2024-08-27] MEDS ORDERED: HYDROmorphone INJ 0.5 MG/0.5 ML SYR IV PRN (07:28)
[2024-08-27] MEDS ORDERED: DC INTRASPINAL MORPHINE SCH (07:30)
[2024-08-27] MEDS ORDERED: NO NARCOTICS OR SEDATIVES SCH (07:30)
[2024-08-27] MEDS: fentaNYL citrate PF 100 MCG/2 ML VIAL EPI STA (08:09)
[2024-08-27] MEDS: LIDOCAINE 2%/EPINEPHRINE 1:200,000 20 ML PF EPI STA (08:09)
[2024-08-27] MEDS: SODIUM CHLORIDE 0.9% PF INJ 10 ML VIAL EPI STA (08:09)
[2024-08-27] MEDS: BUPIVACAINE 0.25% PF 30 ML VIAL EPI STA (08:09)
[2024-08-27] MEDS: LACTATED RINGER'S 1,000 ML IV SCH (09:00)
--- NOTE | 2024-08-27 11:46 | Labor Progress Brief Note ---
Date of Service August 27, 2024 Assessment & Plan Admission and Anticipated Discharge Date Admission Date: August 26, 2024 Physical Exam Genitourinary: Manual OB Exam: + cervical dilation 1 cm, + cervical effacement 60%, + station -2 and + amniotic fluid clear OB Exam Monitor Tracing: + external FHT monitor used, + external uterine monitor used, + category I and + normal FHT variability AROM with Amni-hook clear fluid Results & Data Vital Signs (Past 12 Hours) Vital Signs Temp Pulse Resp BP Pulse Ox 08/27/24 11:41 82 98 08/27/24 11:36 89 97 08/27/24 11:35 76 110/57 L 08/27/24 11:31 83 98 08/27/24 11:26 83 97 08/27/24 11:21 86 99 08/27/24 11:20 85 110/63 08/27/24 11:16 82 99 08/27/24 11:11 90 99 08/27/24 11:06 91 H 97 08/27/24 11:05 89 18 114/71 08/27/24 11:01 98 H 98 08/27/24 11:00 20 08/27/24 11:00 36.7 C 20 08/27/24 10:56 92 H 99 08/27/24 10:51 93 H 97 08/27/24 10:50 98 H 128/69 08/27/24 10:46 95 H 97 08/27/24 10:41 90 99 08/27/24 10:36 96 08/27/24 10:36 100 H 08/27/24 10:36 97 H 128/74 08/27/24 10:31 101 H 96 08/27/24 10:26 95 H 97 08/27/24 10:21 98 08/27/24 10:21 81 08/27/24 10:21 83 120/72 08/27/24 10:16 85 99 08/27/24 10:11 86 98 08/27/24 10:06 86 20 97 08/27/24 10:05 92 H 129/70 08/27/24 10:01 83 98 08/27/24 09:56 84 98 08/27/24 09:51 87 20 122/75 98 08/27/24 09:46 92 H 99 08/27/24 09:41 87 98 08/27/24 09:36 76 98 08/27/24 09:35 85 115/71 08/27/24 09:31 88 99 08/27/24 09:26 80 98 08/27/24 09:21 88 99 08/27/24 09:20 95 H 110/59 L 08/27/24 09:16 86 98 08/27/24 09:11 88 100 08/27/24 09:06 88 98 08/27/24 09:05 93 H 126/68 08/27/24 09:01 91 H 99 08/27/24 08:56 92 H 99 08/27/24 08:51 98 08/27/24 08:51 100 H 08/27/24 08:51 104 H 119/77 08/27/24 08:46 97 H 99 08/27/24 08:41 83 99 08/27/24 08:36 93 H 99 08/27/24 08:35 96 H 20 105/76 08/27/24 08:31 99 H 99 08/27/24 08:26 90 99 08/27/24 08:21 86 98 08/27/24 08:20 93 H 20 104/59 L 08/27/24 08:16 98 H 98 08/27/24 08:11 97 H 99 08/27/24 08:06 95 H 110/57 L 98 08/27/24 08:01 106 H 97 08/27/24 07:56 109 H 98 08/27/24 07:51 110 H 99 08/27/24 07:50 114 H 110/66 08/27/24 07:46 107 H 99 08/27/24 07:41 100 H 99 08/27/24 07:36 106 H 99 08/27/24 07:35 109 H 156/72 H 08/27/24 07:31 97 H 99 08/27/24 07:29 104 H 92 08/27/24 07:26 97 H 99 08/27/24 07:21 100 H 100 08/27/24 07:20 93 H 121/67 08/27/24 07:16 100 H 99 08/27/24 07:11 90 100 08/27/24 07:06 108 H 100 08/27/24 07:05 20 08/27/24 07:05 36.7 C 20 08/27/24 07:01 92 H 99 08/27/24 06:56 80 97 08/27/24 06:51 98 08/27/24 06:51 83 02 06:51 92 H 121/72 08/27/24 06:46 80 96 08/27/24 06:41 85 97 08/27/24 06:36 77 97 08/27/24 06:35 90 121/77 08/27/24 06:31 88 97 08/27/24 06:26 83 99 08/27/24 06:21 99 H 100 08/27/24 06:20 86 128/70 08/27/24 06:16 80 98 08/27/24 06:11 77 98 08/27/24 06:06 80 99 08/27/24 06:05 86 89/55 L 08/27/24 06:01 71 100 08/27/24 05:56 78 99 08/27/24 05:51 99 08/27/24 05:51 74 08/27/24 05:51 71 93/57 L 08/27/24 05:46 67 97 08/27/24 05:41 67 98 08/27/24 05:36 80 100 08/27/24 05:35 82 97/61 L 08/27/24 05:31 69 100 08/27/24 05:26 71 100 08/27/24 05:21 78 100 08/27/24 05:20 67 90/54 L 08/27/24 05:16 78 100 08/27/24 05:11 74 100 08/27/24 05:06 100 H 98 08/27/24 05:01 78 97 08/27/24 04:58 74 93 08/27/24 04:56 67 96 08/27/24 04:51 64 95 08/27/24 04:49 65 02 04:49 68 91/54 L 94 08/27/24 04:46 70 95 08/27/24 04:44 68 94 08/27/24 04:41 72 95 08/27/24 04:38 68 94 08/27/24 04:36 70 96 08/27/24 04:35 71 91/56 L 08/27/24 04:32 69 94 08/27/24 04:31 68 95 08/27/24 04:26 66 96 08/27/24 04:21 62 96 08/27/24 04:20 65 96/63 L 08/27/24 04:16 65 96 08/27/24 04:11 72 100 08/27/24 04:06 61 98 08/27/24 04:05 68 94/58 L 08/27/24 04:01 104 H 96 08/27/24 03:56 76 97 08/27/24 03:51 98 H 103/64 96 08/27/24 03:47 85 93 08/27/24 03:46 86 96 08/27/24 03:41 84 95 08/27/24 03:36 36.5 C 77 18 108/71 96 08/27/24 03:34 94 H 94 08/27/24 03:31 79 96 08/27/24 03:26 80 96 08/27/24 03:21 82 96 08/27/24 03:20 81 106/64 08/27/24 03:16 76 95 08/27/24 03:11 77 96 08/27/24 03:06 86 99/61 L 97 08/27/24 03:01 76 96 08/27/24 02:56 72 96 08/27/24 02:51 75 96 08/27/24 02:50 80 104/64 08/27/24 02:46 78 95 08/27/24 02:41 76 96 08/27/24 02:36 98 08/27/24 02:36 78 08/27/24 02:36 73 110/74 08/27/24 02:31 75 99 08/27/24 02:26 80 100 08/27/24 02:21 82 100 08/27/24 02:20 80 114/79 08/27/24 02:16 74 100 08/27/24 02:11 86 100 08/27/24 02:06 87 100 08/27/24 02:04 85 108/71 08/27/24 02:01 93 H 99 08/27/24 01:57 91 H 92 08/27/24 01:56 83 97 08/27/24 01:51 78 98 08/27/24 01:50 76 101/66 08/27/24 01:46 76 100 08/27/24 01:41 75 98 08/27/24 01:36 94 H 97 08/27/24 01:35 78 110/61 08/27/24 01:31 75 96 08/27/24 01:26 78 95 08/27/24 01:21 73 96 08/27/24 01:19 77 99/61 L 08/27/24 01:16 71 96 08/27/24 01:11 75 97 08/27/24 01:10 90 106/64 08/27/24 01:06 85 98 08/27/24 01:04 75 08/27/24 01:04 91/54 L 08/27/24 01:04 80 103/61 08/27/24 01:01 118 H 97 08/27/24 00:56 66 95 08/27/24 00:51 66 95 08/27/24 00:50 64 85/50 L 08/27/24 00:46 68 95 08/27/24 00:41 69 95 08/27/24 00:36 95 08/27/24 00:36 67 08/27/24 00:36 65 86/50 L 08/27/24 00:31 67 95 08/27/24 00:26 68 96 08/27/24 00:21 70 95/55 L 96 08/27/24 00:16 74 95 08/27/24 00:11 66 96 08/27/24 00:06 65 96 08/27/24 00:05 69 104/62 08/27/24 00:01 96 08/26/24 23:56 95 08/26/24 23:56 67 08/26/24 23:51 95 08/26/24 23:51 68 08/26/24 23:51 68 08/26/24 23:51 86/50 L 08/26/24 23:49 94 08/26/24 23:49 69 08/26/24 23:46 95 08/26/24 23:46 70
--- NOTE | 2024-08-27 14:03 | Labor Progress Brief Note ---
Date of Service August 27, 2024 Assessment & Plan Admission and Anticipated Discharge Date Admission Date: August 26, 2024 Physical Exam Genitourinary: Manual OB Exam: + cervical dilation 2 cm and 3 cm, + cervical effacement 60% and 70%, + station -2 and + amniotic fluid clear OB Exam Monitor Tracing: + external FHT monitor used, + external uterine monitor used, + category I and + normal FHT variability continue Oxytocin Results & Data Vital Signs (Past 12 Hours) Vital Signs Temp Pulse Resp BP Pulse Ox 08/27/24 14:01 91 H 97 08/27/24 13:56 84 97 08/27/24 13:51 91 H 96 08/27/24 13:46 96 H 97 08/27/24 13:41 102 H 97 08/27/24 13:36 95 H 97 08/27/24 13:35 88 118/76 08/27/24 13:31 95 H 99 08/27/24 13:26 94 H 99 08/27/24 13:21 102 H 97 08/27/24 13:20 93 H 117/76 08/27/24 13:16 96 H 96 08/27/24 13:12 106 H 94 08/27/24 13:11 103 H 95 08/27/24 13:06 93 H 97 08/27/24 13:05 93 H 120/68 08/27/24 13:01 78 97 08/27/24 13:00 20 08/27/24 13:00 36.8 C 20 08/27/24 12:56 82 97 08/27/24 12:51 93 H 97 08/27/24 12:50 78 121/76 08/27/24 12:46 88 97 08/27/24 12:41 83 97 08/27/24 12:36 77 97 08/27/24 12:35 82 120/69 08/27/24 12:31 86 97 08/27/24 12:26 84 97 08/27/24 12:21 83 97 08/27/24 12:20 87 18 122/69 08/27/24 12:16 83 97 08/27/24 12:11 77 97 08/27/24 12:06 83 98 08/27/24 12:05 83 114/62 08/27/24 12:01 90 97 08/27/24 11:56 80 98 08/27/24 11:51 77 99 08/27/24 11:50 86 20 115/70 08/27/24 11:46 83 98 08/27/24 11:41 82 98 08/27/24 11:36 89 97 08/27/24 11:35 76 110/57 L 08/27/24 11:31 83 98 08/27/24 11:26 83 97 08/27/24 11:21 86 99 08/27/24 11:20 85 110/63 08/27/24 11:16 82 99 08/27/24 11:11 90 99 08/27/24 11:06 91 H 97 08/27/24 11:05 89 18 114/71 08/27/24 11:01 98 H 98 08/27/24 11:00 20 08/27/24 11:00 36.7 C 20 08/27/24 10:56 92 H 99 08/27/24 10:51 93 H 97 08/27/24 10:50 98 H 128/69 08/27/24 10:46 95 H 97 08/27/24 10:41 90 99 08/27/24 10:36 96 08/27/24 10:36 100 H 08/27/24 10:36 97 H 128/74 08/27/24 10:31 101 H 96 08/27/24 10:26 95 H 97 08/27/24 10:21 98 08/27/24 10:21 81 08/27/24 10:21 83 120/72 08/27/24 10:16 85 99 08/27/24 10:11 86 98 08/27/24 10:06 86 20 97 08/27/24 10:05 92 H 129/70 08/27/24 10:01 83 98 08/27/24 09:56 84 98 08/27/24 09:51 87 20 122/75 98 08/27/24 09:46 92 H 99 08/27/24 09:41 87 98 08/27/24 09:36 76 98 08/27/24 09:35 85 115/71 08/27/24 09:31 88 99 08/27/24 09:26 80 98 08/27/24 09:21 88 99 08/27/24 09:20 95 H 110/59 L 08/27/24 09:16 86 98 08/27/24 09:11 88 100 08/27/24 09:06 88 98 08/27/24 09:05 93 H 126/68 08/27/24 09:01 91 H 99 08/27/24 08:56 92 H 99 08/27/24 08:51 98 08/27/24 08:51 100 H 08/27/24 08:51 104 H 119/77 08/27/24 08:46 97 H 99 08/27/24 08:41 83 99 08/27/24 08:36 93 H 99 08/27/24 08:35 96 H 20 105/76 08/27/24 08:31 99 H 99 08/27/24 08:26 90 99 08/27/24 08:21 86 98 08/27/24 08:20 93 H 20 104/59 L 08/27/24 08:16 98 H 98 08/27/24 08:11 97 H 99 08/27/24 08:06 95 H 110/57 L 98 08/27/24 08:01 106 H 97 08/27/24 07:56 109 H 98 08/27/24 07:51 110 H 99 08/27/24 07:50 114 H 110/66 08/27/24 07:46 107 H 99 08/27/24 07:41 100 H 99 08/27/24 07:36 106 H 99 08/27/24 07:35 109 H 156/72 H 08/27/24 07:31 97 H 99 08/27/24 07:29 104 H 92 08/27/24 07:26 97 H 99 08/27/24 07:21 100 H 100 08/27/24 07:20 93 H 121/67 08/27/24 07:16 100 H 99 08/27/24 07:11 90 100 08/27/24 07:06 108 H 100 08/27/24 07:05 20 08/27/24 07:05 36.7 C 20 08/27/24 07:01 92 H 99 08/27/24 06:56 80 97 08/27/24 06:51 98 08/27/24 06:51 83 08/27/24 06:51 92 H 121/72 08/27/24 06:46 80 96 08/27/24 06:41 85 97 08/27/24 06:36 77 97 08/27/24 06:35 90 121/77 08/27/24 06:31 88 97 08/27/24 06:26 83 99 08/27/24 06:21 99 H 100 08/27/24 06:20 86 128/70 08/27/24 06:16 80 98 08/27/24 06:11 77 98 08/27/24 06:06 80 99 08/27/24 06:05 86 89/55 L 08/27/24 06:01 71 100 08/27/24 05:56 78 99 08/27/24 05:51 99 08/27/24 05:51 74 08/27/24 05:51 71 93/57 L 08/27/24 05:46 67 97 08/27/24 05:41 67 98 08/27/24 05:36 80 100 08/27/24 05:35 82 97/61 L 08/27/24 05:31 69 100 08/27/24 05:26 71 100 08/27/24 05:21 78 100 08/27/24 05:20 67 90/54 L 08/27/24 05:16 78 100 08/27/24 05:11 74 100 08/27/24 05:06 100 H 98 08/27/24 05:01 78 97 08/27/24 04:58 74 93 08/27/24 04:56 67 96 08/27/24 04:51 64 95 08/27/24 04:49 65 08/27/24 04:49 68 91/54 L 94 08/27/24 04:46 70 95 08/27/24 04:44 68 94 08/27/24 04:41 72 95 08/27/24 04:38 68 94 08/27/24 04:36 70 96 08/27/24 04:35 71 91/56 L 08/27/24 04:32 69 94 08/27/24 04:31 68 95 08/27/24 04:26 66 96 08/27/24 04:21 62 96 08/27/24 04:20 65 96/63 L 08/27/24 04:16 65 96 08/27/24 04:11 72 100 08/27/24 04:06 61 98 08/27/24 04:05 68 94/58 L 08/27/24 04:01 104 H 96 08/27/24 03:56 76 97 08/27/24 03:51 98 H 103/64 96 08/27/24 03:47 85 93 08/27/24 03:46 86 96 08/27/24 03:41 84 95 08/27/24 03:36 36.5 C 77 18 108/71 96 08/27/24 03:34 94 H 94 08/27/24 03:31 79 96 08/27/24 03:26 80 96 08/27/24 03:21 82 96 08/27/24 03:20 81 106/64 08/27/24 03:16 76 95 08/27/24 03:11 77 96 08/27/24 03:06 86 99/61 L 97 08/27/24 03:01 76 96 08/27/24 02:56 72 96 08/27/24 02:51 75 96 08/27/24 02:50 80 104/64 08/27/24 02:46 78 95 08/27/24 02:41 76 96 08/27/24 02:36 98 08/27/24 02:36 78 08/27/24 02:36 73 110/74 08/27/24 02:31 75 99 08/27/24 02:26 80 100 08/27/24 02:21 82 100 08/27/24 02:20 80 114/79 08/27/24 02:16 74 100 08/27/24 02:11 86 100 08/27/24 02:06 87 100 08/27/24 02:04 85 108/71
[2024-08-27] MEDS: fentANYL 2 MCG/ML BUPIVacaine 0.125%-NSS 100ML BAG EPI PRN (15:29)
--- NOTE | 2024-08-27 18:13 | Labor Progress Brief Note ---
Date of Service August 27, 2024 Assessment & Plan Admission and Anticipated Discharge Date Admission Date: August 26, 2024 Physical Exam Genitourinary: Manual OB Exam: + cervical dilation 4 cm, + cervical effacement 80% and + station -2 OB Exam Monitor Tracing: + external FHT monitor used, + external uterine monitor used, + category I and + normal FHT variability Results & Data Vital Signs (Past 12 Hours) Vital Signs Temp Pulse Resp BP Pulse Ox 08/27/24 18:11 89 93 08/27/24 18:06 81 97 08/27/24 18:04 93 H 111/70 08/27/24 18:01 95 H 97 08/27/24 17:56 105 H 98 08/27/24 17:51 98 H 96 08/27/24 17:50 92 H 123/75 08/27/24 17:46 95 H 97 08/27/24 17:41 96 H 97 08/27/24 17:36 83 98 08/27/24 17:35 87 119/78 08/27/24 17:31 95 H 98 08/27/24 17:26 86 98 08/27/24 17:21 91 H 99 08/27/24 17:19 83 117/74 08/27/24 17:16 88 97 08/27/24 17:11 92 H 98 08/27/24 17:06 108 H 97 08/27/24 17:04 86 125/81 08/27/24 17:02 104 H 94 08/27/24 17:01 106 H 98 08/27/24 16:56 94 H 100 08/27/24 16:51 92 H 99 08/27/24 16:50 37.0 C 206 H 16 131/74 08/27/24 16:46 97 H 97 08/27/24 16:41 94 H 99 08/27/24 16:36 96 H 98 08/27/24 16:35 85 118/75 08/27/24 16:31 90 98 08/27/24 16:26 97 H 96 08/27/24 16:21 98 08/27/24 16:21 82 08/27/24 16:21 86 104/60 08/27/24 16:16 93 H 98 08/27/24 16:11 80 97 08/27/24 16:06 105 H 97 08/27/24 16:04 85 18 110/74 08/27/24 16:01 93 H 99 08/27/24 15:56 88 99 08/27/24 15:51 91 H 98 08/27/24 15:49 92 H 109/71 08/27/24 15:46 90 99 08/27/24 15:41 97 H 98 08/27/24 15:36 91 H 98 08/27/24 15:35 82 20 123/72 08/27/24 15:31 82 98 08/27/24 15:26 86 98 08/27/24 15:24 97 H 91 08/27/24 15:21 97 H 99 08/27/24 15:16 82 96 08/27/24 15:15 18 08/27/24 15:15 36.7 C 18 08/27/24 15:12 77 94 08/27/24 15:11 87 97 08/27/24 15:06 77 99 08/27/24 15:05 89 108/69 08/27/24 15:01 86 96 08/27/24 14:59 83 94 08/27/24 14:56 83 94 08/27/24 14:54 77 94 08/27/24 14:52 81 103/65 08/27/24 14:51 83 94 08/27/24 14:48 78 94 08/27/24 14:46 79 95 08/27/24 14:41 87 95 08/27/24 14:36 83 98 08/27/24 14:35 87 101/56 L 08/27/24 14:34 90 92 08/27/24 14:31 83 99 08/27/24 14:26 76 99 08/27/24 14:21 78 103/57 L 97 08/27/24 14:16 93 H 97 08/27/24 14:11 89 97 08/27/24 14:06 97 H 96 08/27/24 14:05 90 20 121/79 08/27/24 14:01 91 H 97 08/27/24 13:56 84 97 08/27/24 13:51 91 H 96 08/27/24 13:46 96 H 97 08/27/24 13:41 102 H 97 08/27/24 13:36 95 H 97 08/27/24 13:35 88 118/76 08/27/24 13:31 95 H 99 08/27/24 13:26 94 H 99 08/27/24 13:21 102 H 97 08/27/24 13:20 93 H 117/76 08/27/24 13:16 96 H 96 08/27/24 13:12 106 H 94 08/27/24 13:11 103 H 95 08/27/24 13:06 93 H 97 08/27/24 13:05 93 H 120/68 08/27/24 13:01 78 97 08/27/24 13:00 20 08/27/24 13:00 36.8 C 20 08/27/24 12:56 82 97 08/27/24 12:51 93 H 97 08/27/24 12:50 78 121/76 08/27/24 12:46 88 97 08/27/24 12:41 83 97 08/27/24 12:36 77 97 08/27/24 12:35 82 120/69 08/27/24 12:31 86 97 08/27/24 12:26 84 97 08/27/24 12:21 83 97 08/27/24 12:20 87 18 122/69 08/27/24 12:16 83 97 08/27/24 12:11 77 97 08/27/24 12:06 83 98 08/27/24 12:05 83 114/62 08/27/24 12:01 90 97 08/27/24 11:56 80 98 08/27/24 11:51 77 99 08/27/24 11:50 86 20 115/70 08/27/24 11:46 83 98 08/27/24 11:41 82 98 08/27/24 11:36 89 97 08/27/24 11:35 76 110/57 L 08/27/24 11:31 83 98 08/27/24 11:26 83 97 08/27/24 11:21 86 99 02 11:20 85 110/63 08/27/24 11:16 82 99 08/27/24 11:11 90 99 08/27/24 11:06 91 H 97 08/27/24 11:05 89 18 114/71 08/27/24 11:01 98 H 98 08/27/24 11:00 20 08/27/24 11:00 36.7 C 20 08/27/24 10:56 92 H 99 08/27/24 10:51 93 H 97 08/27/24 10:50 98 H 128/69 08/27/24 10:46 95 H 97 08/27/24 10:41 90 99 08/27/24 10:36 96 08/27/24 10:36 100 H 08/27/24 10:36 97 H 128/74 08/27/24 10:31 101 H 96 08/27/24 10:26 95 H 97 08/27/24 10:21 98 08/27/24 10:21 81 08/27/24 10:21 83 120/72 08/27/24 10:16 85 99 08/27/24 10:11 86 98 08/27/24 10:06 86 20 97 08/27/24 10:05 92 H 129/70 08/27/24 10:01 83 98 08/27/24 09:56 84 98 08/27/24 09:51 87 20 122/75 98 08/27/24 09:46 92 H 99 08/27/24 09:41 87 98 08/27/24 09:36 76 98 08/27/24 09:35 85 115/71 08/27/24 09:31 88 99 08/27/24 09:26 80 98 08/27/24 09:21 88 99 08/27/24 09:20 95 H 110/59 L 08/27/24 09:16 86 98 08/27/24 09:11 88 100 08/27/24 09:06 88 98 08/27/24 09:05 93 H 126/68 08/27/24 09:01 91 H 99 08/27/24 08:56 92 H 99 08/27/24 08:51 98 08/27/24 08:51 100 H 08/27/24 08:51 104 H 119/77 08/27/24 08:46 97 H 99 08/27/24 08:41 83 99 08/27/24 08:36 93 H 99 08/27/24 08:35 96 H 20 105/76 08/27/24 08:31 99 H 99 08/27/24 08:26 90 99 08/27/24 08:21 86 98 08/27/24 08:20 93 H 20 104/59 L 08/27/24 08:16 98 H 98 08/27/24 08:11 97 H 99 08/27/24 08:06 95 H 110/57 L 98 08/27/24 08:01 106 H 97 08/27/24 07:56 109 H 98 08/27/24 07:51 110 H 99 08/27/24 07:50 114 H 110/66 08/27/24 07:46 107 H 99 08/27/24 07:41 100 H 99 08/27/24 07:36 106 H 99 08/27/24 07:35 109 H 156/72 H 08/27/24 07:31 97 H 99 08/27/24 07:29 104 H 92 08/27/24 07:26 97 H 99 08/27/24 07:21 100 H 100 08/27/24 07:20 93 H 121/67 08/27/24 07:16 100 H 99 08/27/24 07:11 90 100 08/27/24 07:06 108 H 100 08/27/24 07:05 20 08/27/24 07:05 36.7 C 20 08/27/24 07:01 92 H 99 08/27/24 06:56 80 97 08/27/24 06:51 98 08/27/24 06:51 83 08/27/24 06:51 92 H 121/72 08/27/24 06:46 80 96 08/27/24 06:41 85 97 08/27/24 06:36 77 97 08/27/24 06:35 90 121/77 08/27/24 06:31 88 97 08/27/24 06:26 83 99 08/27/24 06:21 99 H 100 08/27/24 06:20 86 128/70 08/27/24 06:16 80 98
[2024-08-27] MEDS ORDERED: NURSING L&D Epidural Breakthrough Pain Update ONE (20:37)
--- NOTE | 2024-08-28 07:49 | Labor Progress Brief Note ---
Date of Service August 28, 2024 Assessment & Plan Admission and Anticipated Discharge Date Admission Date: August 26, 2024 Physical Exam Genitourinary: Manual OB Exam: + cervical dilation 10 cm, + cervical effacement 100%, + station + 1 and + amniotic fluid clear OB Exam Monitor Tracing: + external FHT monitor used, + external uterine monitor used, + category I and + normal FHT variability Results & Data Vital Signs (Past 12 Hours) Vital Signs Temp Pulse Resp BP Pulse Ox 08/28/24 07:46 111 H 100 08/28/24 07:41 111 H 97 08/28/24 07:37 114 H 119/82 08/28/24 07:36 105 H 98 08/28/24 07:35 36.8 C 20 08/28/24 07:34 127 H 89 L 08/28/24 07:31 114 H 98 08/28/24 07:26 113 H 99 08/28/24 07:21 116 H 99 08/28/24 07:19 111 H 119/80 08/28/24 07:16 112 H 98 08/28/24 07:11 121 H 100 08/28/24 07:08 119 H 89 L 08/28/24 07:06 121 H 100 08/28/24 07:05 117 H 120/76 08/28/24 07:01 128 H 99 08/28/24 06:56 112 H 100 08/28/24 06:51 115 H 99 08/28/24 06:50 108 H 88 L 08/28/24 06:46 115 H 100 08/28/24 06:41 121 H 100 08/28/24 06:36 100 08/28/24 06:36 114 H 08/28/24 06:36 117 H 126/84 08/28/24 06:31 114 H 100 08/28/24 06:26 106 H 100 08/28/24 06:21 105 H 100 08/28/24 06:20 96 H 115/58 L 08/28/24 06:19 115 H 87 L 08/28/24 06:16 105 H 100 08/28/24 06:11 103 H 98 08/28/24 06:06 90 97 08/28/24 06:05 85 94/52 L 08/28/24 06:01 85 96 08/28/24 05:56 79 95 08/28/24 05:51 76 95 08/28/24 05:50 75 87/53 L 08/28/24 05:46 75 95 08/28/24 05:41 77 95 08/28/24 05:36 96 H 95 08/28/24 05:35 92 H 94/52 L 08/28/24 05:31 75 93 08/28/24 05:26 76 92 08/28/24 05:21 75 92 08/28/24 05:20 74 82/48 L 08/28/24 05:16 74 92 08/28/24 05:11 77 92 08/28/24 05:06 76 93 08/28/24 05:05 75 84/51 L 08/28/24 05:01 77 93 08/28/24 04:56 81 93 08/28/24 04:51 93 08/28/24 04:51 82 08/28/24 04:51 81 83/45 L 08/28/24 04:46 86 94 08/28/24 04:41 86 94 08/28/24 04:36 82 94 08/28/24 04:35 74 89/51 L 08/28/24 04:31 86 96 08/28/24 04:26 120 H 95 08/28/24 04:21 94 08/28/24 04:21 102 H 08/28/24 04:21 111 H 94/52 L 08/28/24 04:16 101 H 92 08/28/24 04:11 93 H 92 08/28/24 04:06 93 H 93 08/28/24 04:04 102 H 93/54 L 08/28/24 04:01 92 H 93 08/28/24 03:56 98 H 93 08/28/24 03:51 95 H 95 08/28/24 03:50 96 H 94/51 L 08/28/24 03:46 96 H 93 08/28/24 03:41 97 H 97 08/28/24 03:36 103 H 103/56 L 95 08/28/24 03:31 113 H 95 08/28/24 03:26 105 H 95 08/28/24 03:21 108 H 95 08/28/24 03:19 94 H 106/56 L 08/28/24 03:16 81 93 08/28/24 03:11 86 93 08/28/24 03:06 89 94 08/28/24 03:04 86 112/61 08/28/24 03:01 93 H 94 08/28/24 02:56 110 H 95 08/28/24 02:51 96 08/28/24 02:51 97 H 08/28/24 02:51 91 H 112/61 08/28/24 02:46 105 H 96 08/28/24 02:41 85 93 08/28/24 02:36 85 95 08/28/24 02:35 85 110/70 08/28/24 02:31 93 H 96 08/28/24 02:26 87 98 08/28/24 02:21 109 H 99 08/28/24 02:19 112 H 111/73 08/28/24 02:16 110 H 98 08/28/24 02:11 108 H 99 08/28/24 02:06 98 H 109/70 98 08/28/24 02:01 111 H 99 08/28/24 01:56 110 H 100 08/28/24 01:51 112 H 100 08/28/24 01:50 118 H 104/71 08/28/24 01:46 106 H 99 08/28/24 01:41 108 H 100 08/28/24 01:36 135 H 100 08/28/24 01:35 117 H 108/61 08/28/24 01:31 126 H 98 08/28/24 01:30 36.6 C 08/28/24 01:26 140 H 100 08/28/24 01:21 108 H 95 08/28/24 01:20 122 H 112/62 08/28/24 01:16 113 H 99 08/28/24 01:11 113 H 97 08/28/24 01:06 114 H 99 08/28/24 01:04 123 H 120/79 08/28/24 01:01 122 H 100 08/28/24 00:56 141 H 100 08/28/24 00:51 96 08/28/24 00:51 140 H 08/28/24 00:51 137 H 125/81 08/28/24 00:46 112 H 100 08/28/24 00:41 110 H 99 08/28/24 00:36 114 H 98 08/28/24 00:35 107 H 109/71 08/28/24 00:31 102 H 95 02/21/25 00:26 112 H 99 08/28/24 00:21 108 H 99 08/28/24 00:19 100 H 115/71 08/28/24 00:16 104 H 100 08/28/24 00:13 107 H 84 L 08/28/24 00:11 101 H 100 08/28/24 00:06 109 H 97 08/28/24 00:05 114 H 115/73 08/28/24 00:03 117 H 88 L 08/28/24 00:01 76 97 08/27/24 23:56 75 97 08/27/24 23:51 76 99 08/27/24 23:50 74 99/56 L 08/27/24 23:46 78 98 08/27/24 23:41 77 100 08/27/24 23:36 97 H 100 08/27/24 23:35 89 108/60 08/27/24 23:31 98 08/27/24 23:31 89 08/27/24 23:31 89 87 L 08/27/24 23:30 36.6 C 08/27/24 23:26 123 H 99 08/27/24 23:21 91 H 95 08/27/24 23:19 93 H 112/76 08/27/24 23:16 92 H 94 08/27/24 23:11 91 H 94 08/27/24 23:06 95 08/27/24 23:06 93 H 08/27/24 23:06 93 H 111/74 08/27/24 23:01 89 95 08/27/24 22:56 97 H 95 08/27/24 22:51 96 H 98 08/27/24 22:49 103 H 122/79 08/27/24 22:46 100 H 98 08/27/24 22:41 96 H 98 08/27/24 22:36 98 H 117/77 100 08/27/24 22:31 99 H 99 08/27/24 22:26 95 H 97 08/27/24 22:21 89 94 08/27/24 22:19 100 H 94/55 L 08/27/24 22:16 83 93 08/27/24 22:11 85 93 08/27/24 22:06 82 92 08/27/24 22:04 82 91/54 L 08/27/24 22:01 84 92 022025 21:56 85 92 022025 21:51 92 022025 21:51 83 022025 21:51 86 89/50 L 0225 21:46 85 93 022025 21:41 86 93 25 21:36 88 94 022025 21:34 92 H 94/58 L 02 21:33 86 94 02 21:31 96 H 95 02 21:30 36.9 C 08/27/24 21:28 88 94 08/27/24 21:26 89 95 08/27/24 21:23 86 94 02 21:21 91 H 96 08/27/24 21:20 94 H 96/57 L 08/27/24 21:16 91 H 99 02 21:11 117 H 97 02 21:08 106 H 92 08/27/24 21:06 99 H 97 02 21:04 109 H 132/80 022025 21:01 103 H 98 25 20:56 105 H 98 022025 20:51 100 H 97 022025 20:50 105 H 131/82 022025 20:46 107 H 97 022025 20:41 108 H 98 022025 20:36 110 H 97 022025 20:35 104 H 119/80 022025 20:31 108 H 97 022025 20:26 107 H 96 022025 20:21 109 H 94 022025 20:20 109 H 142/77 H 022025 20:16 106 H 98 0220/25 20:11 101 H 100 0220/25 20:06 100 H 100 0220/25 20:05 93 H 103/57 L 022025 20:01 99 H 97 022025 19:56 104 H 97 022025 19:51 107 H 102/59 L 97
--- NOTE | 2024-08-28 08:27 | Anesthesiology Consultation ---
Date of Service August 28, 2024 Assessment & Plan Chart Review Chart Review: Patient NOT seen in Pre Admission Testing and Acceptable Risk for Labor Epidural Consults Requested none ASA ASA2 Proposed Anesthesia Anesthesia Type: Labor Epidural Risk / Benefits Reviewed With: PT / POA / Parent / Guardian, Accepts Plan and Informed Consent Obtained Additional Notes Epidural was placed on 08/26. Note was inadvertently missed at that time. History Height/Weight Height: 5 ft 4 in Weight: 78.471 kg Allergies Allergy/AdvReac Type Severity Reaction Status Date / Time peanut Allergy Severe THROAT Verified 08/26/24 08:20 SWELLING tree nut Allergy Severe Throat Verified 08/26/24 08:20 swelling Medications Home Medications Medication Instructions Recorded Confirmed Last Taken epinephrine 0.3 mg/0.3 mL 0.3 mg IM DIRECTED PRN Allergic 03/16/21 08/26/24 Unknown injection, auto-injector Reaction vitamins no.144-folic 2 tab PO HS 08/18/24 08/26/24 08/17/24 acid 400 mcg chewable tablet () albuterol sulfate 90 mcg/actuation 2 puff inhalation QID PRN Other 08/26/24 08/26/24 Unknown aerosol inhaler (Ventolin HFA) Active Medications Generic Name Dose Route Start Last Admin Trade Name Freq PRN Reason Stop Dose Admin Acetaminophen 650 mg 08/26/24 08:24 08/28/24 01:31 Acetaminophen 325 Mg Tab PO 09/25/24 08:23 650 mg Q6H PRN Administration Pain Butorphanol Tartrate 1 mg 08/26/24 09:32 08/26/24 18:43 Butorphanol Tartrate 1 Mg/Ml Vial IV 09/25/24 09:31 1 mg Q2H PRN Administration Pain Penicillin G Potassium 3 mu/ 106 mls @ 100 mls/hr 08/26/24 12:30 08/28/24 06:44 Dextrose IV 09/05/24 12:29 Infused Q4H PRN Infusion GBS(+) Until Delivery Oxytocin 30 units in 500 mls @ 15 mls/hr 08/26/24 22:27 08/28/24 07:09 Pitocin 30 Units/Nss IV 08/28/24 22:26 0.9 units/hr .Q24H PRN 15 mls/hr Labor Induction/Augmentation Titration Protocol 0.9 UNITS/HR Lactated Ringer's 1,000 mls @ 125 mls/hr 08/27/24 17:30 08/28/24 05:40 Lr IV 08/28/24 17:29 125 mls/hr .Q8H KASHMIR Administration Ondansetron HCl 4 mg 08/26/24 18:35 08/28/24 06:37 Ondansetron Inj 2 Mg/Ml 2 Ml Vial IV 09/25/24 18:34 4 mg Q4H PRN Administration Nausea Past Medical History Medical History (Updated 08/26/24 @ 09:37 by Aspen Davila MD) GBS (group B Streptococcus carrier), +RV culture, currently Asthma Exercise / Class Metabolic Activity II 4-5 Yardwork/Stairs/Walk up hill Past Surgical History Surgical History H/O knee surgery Hx of colonoscopy Past Anesthesia History No Hx of Anesthesia Complications and No Family Hx of Anesthesia Complications History of PONV No Hx of PONV and No Hx of Motion Sickness Social History Smoking Status: Never smoker Hx Alcohol Use: No Hx Substance Use: No substance use type: does not use Physical Exam Vital Signs Last Vital Signs Temp 36.8 C 08/28/24 07:35 Pulse 123 H 08/28/24 08:21 Resp 20 08/28/24 07:35 BP 113/65 08/28/24 08:20 Pulse Ox 75 L 08/28/24 08:21 ENMT Mouth: no dentition abnormality Thyromental Distance: > or= 3.5 Finger Breadths Mallampati Class: II Neck normal visual inspection Respiratory normal respiratory effort Auscultation: lungs clear to auscultation bilaterally Cardiovascular Rate/Rhythm: regular rate and regular rhythm Psychiatric Orientation: alert Testing Laboratory Results 08/26/24 08:55
--- NOTE | 2024-08-28 09:10 | Obstetrical Progress Note ---
Date of Service August 28, 2024 Assessment & Plan Admission and Anticipated Discharge Date Admission Date: August 26, 2024 Subjective Patient is seen and examined. Had AROM yesterday am by Dr Quarles and has been on Oxytocin with 1 hour rest at [place] Slow progress since then She felt pressure and found to be fully dilated at 07:48, started pushing at 07:58 Has been pushing with good effforts VE; head is coned, tip at +2, OP, anterior fontanelle at 1 O'Clock, attempted manual rotation, able to turn to ROP, ant fontanelle at 3-4 o'clock position now FHR had been categ I, moderate variability and multiple accels, no decels Patient has urge to psg with contractions Continue to push on left lateral side and alternate to knee chest Continue to monitor closely Results & Data Vital Signs (Past 12 Hours) Vital Signs Temp Pulse Resp BP Pulse Ox 08/28/24 09:01 115 H 97 08/28/24 08:58 136 H 86 L 08/28/24 08:56 116 H 96 08/28/24 08:54 20 08/28/24 08:54 37.0 C 20 08/28/24 08:51 122 H 95 08/28/24 08:46 112 H 95 08/28/24 08:41 155 H 88 L 08/28/24 08:39 136 H 87 L 08/28/24 08:36 154 H 97 08/28/24 08:35 117 H 122/71 08/28/24 08:33 120 H 82 L 08/28/24 08:31 138 H 20 97 08/28/24 08:26 137 H 86 L 08/28/24 08:21 75 L 08/28/24 08:21 123 H 08/28/24 08:21 119 H 80 L 08/28/24 08:20 134 H 113/65 08/28/24 08:16 142 H 99 08/28/24 08:11 129 H 98 08/28/24 08:06 143 H 100 08/28/24 08:04 126 H 115/76 08/28/24 08:01 126 H 20 98 08/28/24 07:56 132 H 97 08/28/24 07:51 116 H 100 08/28/24 07:50 108 H 120/81 08/28/24 07:46 111 H 100 08/28/24 07:41 111 H 97 08/28/24 07:37 114 H 119/82 08/28/24 07:36 105 H 98 08/28/24 07:35 36.8 C 20 08/28/24 07:34 127 H 89 L 08/28/24 07:31 114 H 98 08/28/24 07:30 20 08/28/24 07:30 20 08/28/24 07:26 113 H 99 08/28/24 07:21 116 H 99 08/28/24 07:19 111 H 119/80 08/28/24 07:16 112 H 98 08/28/24 07:11 121 H 100 08/28/24 07:08 119 H 89 L 08/28/24 07:06 121 H 100 08/28/24 07:05 117 H 120/76 08/28/24 07:01 128 H 99 08/28/24 06:56 112 H 100 08/28/24 06:51 115 H 99 08/28/24 06:50 108 H 88 L 08/28/24 06:46 115 H 100 08/28/24 06:41 121 H 100 08/28/24 06:36 100 08/28/24 06:36 114 H 08/28/24 06:36 117 H 126/84 08/28/24 06:31 114 H 100 08/28/24 06:26 106 H 100 08/28/24 06:21 105 H 100 08/28/24 06:20 96 H 115/58 L 08/28/24 06:19 115 H 87 L 08/28/24 06:16 105 H 100 08/28/24 06:11 103 H 98 08/28/24 06:06 90 97 08/28/24 06:05 85 94/52 L 08/28/24 06:01 85 96 08/28/24 05:56 79 95 08/28/24 05:51 76 95 08/28/24 05:50 75 87/53 L 08/28/24 05:46 75 95 08/28/24 05:41 77 95 08/28/24 05:36 96 H 95 08/28/24 05:35 92 H 94/52 L 08/28/24 05:31 75 93 08/28/24 05:26 76 92 08/28/24 05:21 75 92 08/28/24 05:20 74 82/48 L 08/28/24 05:16 74 92 08/28/24 05:11 77 92 08/28/24 05:06 76 93 08/28/24 05:05 75 84/51 L 08/28/24 05:01 77 93 08/28/24 04:56 81 93 08/28/24 04:51 93 08/28/24 04:51 82 08/28/24 04:51 81 83/45 L 08/28/24 04:46 86 94 08/28/24 04:41 86 94 08/28/24 04:36 82 94 08/28/24 04:35 74 89/51 L 08/28/24 04:31 86 96 08/28/24 04:26 120 H 95 08/28/24 04:21 94 08/28/24 04:21 102 H 08/28/24 04:21 111 H 94/52 L 08/28/24 04:16 101 H 92 08/28/24 04:11 93 H 92 08/28/24 04:06 93 H 93 08/28/24 04:04 102 H 93/54 L 08/28/24 04:01 92 H 93 08/28/24 03:56 98 H 93 08/28/24 03:51 95 H 95 08/28/24 03:50 96 H 94/51 L 08/28/24 03:46 96 H 93 08/28/24 03:41 97 H 97 08/28/24 03:36 103 H 103/56 L 95 08/28/24 03:31 113 H 95 08/28/24 03:26 105 H 95 08/28/24 03:21 108 H 95 08/28/24 03:19 94 H 106/56 L 08/28/24 03:16 81 93 08/28/24 03:11 86 93 08/28/24 03:06 89 94 08/28/24 03:04 86 112/61 08/28/24 03:01 93 H 94 08/28/24 02:56 110 H 95 08/28/24 02:51 96 08/28/24 02:51 97 H 08/28/24 02:51 91 H 112/61 08/28/24 02:46 105 H 96 08/28/24 02:41 85 93 08/28/24 02:36 85 95 08/28/24 02:35 85 110/70 08/28/24 02:31 93 H 96 08/28/24 02:26 87 98 08/28/24 02:21 109 H 99 08/28/24 02:19 112 H 111/73 08/28/24 02:16 110 H 98 08/28/24 02:11 108 H 99 08/28/24 02:06 98 H 109/70 98 08/28/24 02:01 111 H 99 08/28/24 01:56 110 H 100 08/28/24 01:51 112 H 100 08/28/24 01:50 118 H 104/71 08/28/24 01:46 106 H 99 08/28/24 01:41 108 H 100 08/28/24 01:36 135 H 100 08/28/24 01:35 117 H 108/61 08/28/24 01:31 126 H 98 08/28/24 01:30 36.6 C 08/28/24 01:26 140 H 100 08/28/24 01:21 108 H 95 08/28/24 01:20 122 H 112/62 08/28/24 01:16 113 H 99 08/28/24 01:11 113 H 97 08/28/24 01:06 114 H 99 08/28/24 01:04 123 H 120/79 08/28/24 01:01 122 H 100 08/28/24 00:56 141 H 100 08/28/24 00:51 96 08/28/24 00:51 140 H 08/28/24 00:51 137 H 125/81 08/28/24 00:46 112 H 100 08/28/24 00:41 110 H 99 08/28/24 00:36 114 H 98 08/28/24 00:35 107 H 109/71 08/28/24 00:31 102 H 95 08/28/24 00:26 112 H 99 08/28/24 00:21 108 H 99 08/28/24 00:19 100 H 115/71 08/28/24 00:16 104 H 100 08/28/24 00:13 107 H 84 L 08/28/24 00:11 101 H 100 08/28/24 00:06 109 H 97 08/28/24 00:05 114 H 115/73 02/21/25 00:03 117 H 88 L 08/28/24 00:01 76 97 08/27/24 23:56 75 97 08/27/24 23:51 76 99 08/27/24 23:50 74 99/56 L 08/27/24 23:46 78 98 08/27/24 23:41 77 100 08/27/24 23:36 97 H 100 08/27/24 23:35 89 108/60 08/27/24 23:31 98 08/27/24 23:31 89 08/27/24 23:31 89 87 L 08/27/24 23:30 36.6 C 08/27/24 23:26 123 H 99 08/27/24 23:21 91 H 95 08/27/24 23:19 93 H 112/76 08/27/24 23:16 92 H 94 08/27/24 23:11 91 H 94 08/27/24 23:06 95 08/27/24 23:06 93 H 08/27/24 23:06 93 H 111/74 08/27/24 23:01 89 95 08/27/24 22:56 97 H 95 08/27/24 22:51 96 H 98 08/27/24 22:49 103 H 122/79 08/27/24 22:46 100 H 98 08/27/24 22:41 96 H 98 08/27/24 22:36 98 H 117/77 100 08/27/24 22:31 99 H 99 08/27/24 22:26 95 H 97 08/27/24 22:21 89 94 08/27/24 22:19 100 H 94/55 L 08/27/24 22:16 83 93 08/27/24 22:11 85 93 08/27/24 22:06 82 92 08/27/24 22:04 82 91/54 L 08/27/24 22:01 84 92 08/27/24 21:56 85 92 08/27/24 21:51 92 08/27/24 21:51 83 08/27/24 21:51 86 89/50 L 08/27/24 21:46 85 93 08/27/24 21:41 86 93 08/27/24 21:36 88 94 08/27/24 21:34 92 H 94/58 L 08/27/24 21:33 86 94 08/27/24 21:31 96 H 95 08/27/24 21:30 36.9 C 08/27/24 21:28 88 94 08/27/24 21:26 89 95 08/27/24 21:23 86 94 08/27/24 21:21 91 H 96 08/27/24 21:20 94 H 96/57 L 08/27/24 21:16 91 H 99 08/27/24 21:11 117 H 97 08/27/24 21:08 106 H 92 08/27/24 21:06 99 H 97
--- NOTE | 2024-08-28 10:12 | Obstetrical Progress Note ---
Date of Service August 28, 2024 Assessment & Plan Admission and Anticipated Discharge Date Admission Date: August 26, 2024 Subjective Patient has been pushing with good efforts. Pushed on her left side and knee chest for about 20 min. Now on her back, bony head feels lower, +2 to 3, partial internal rotation, anterior fontanelle at 4-5 o'clock position. FHR had been categ I, No decels [place] with irregular contractions q 2-5 min, Oxytocin is at 21 miu/min Results & Data Vital Signs (Past 12 Hours) Vital Signs Temp Pulse Resp BP Pulse Ox 08/28/24 10:08 121 H 95 08/28/24 10:03 127 H 96 08/28/24 09:58 161 H 97 08/28/24 09:53 126 H 95 08/28/24 09:48 149 H 99 08/28/24 09:46 20 08/28/24 09:46 20 08/28/24 09:43 120 H 97 08/28/24 09:11 109 H 96 08/28/24 09:10 121 H 90 08/28/24 09:06 109 H 98 08/28/24 09:05 107 H 84 L 08/28/24 09:01 115 H 97 08/28/24 08:58 136 H 86 L 08/28/24 08:56 116 H 96 08/28/24 08:54 20 08/28/24 08:54 37.0 C 20 08/28/24 08:51 122 H 95 08/28/24 08:46 112 H 95 08/28/24 08:41 155 H 88 L 08/28/24 08:39 136 H 87 L 08/28/24 08:36 154 H 97 08/28/24 08:35 117 H 122/71 08/28/24 08:33 120 H 82 L 08/28/24 08:31 138 H 20 97 08/28/24 08:26 137 H 86 L 08/28/24 08:21 75 L 08/28/24 08:21 123 H 08/28/24 08:21 119 H 80 L 08/28/24 08:20 134 H 113/65 08/28/24 08:16 142 H 99 08/28/24 08:11 129 H 98 08/28/24 08:06 143 H 100 08/28/24 08:04 126 H 115/76 08/28/24 08:01 126 H 20 98 08/28/24 07:56 132 H 97 08/28/24 07:51 116 H 100 08/28/24 07:50 108 H 120/81 08/28/24 07:46 111 H 100 08/28/24 07:41 111 H 97 08/28/24 07:37 114 H 119/82 08/28/24 07:36 105 H 98 08/28/24 07:35 36.8 C 20 08/28/24 07:34 127 H 89 L 08/28/24 07:31 114 H 98 08/28/24 07:30 20 08/28/24 07:30 20 08/28/24 07:26 113 H 99 08/28/24 07:21 116 H 99 08/28/24 07:19 111 H 119/80 08/28/24 07:16 112 H 98 08/28/24 07:11 121 H 100 08/28/24 07:08 119 H 89 L 08/28/24 07:06 121 H 100 08/28/24 07:05 117 H 120/76 08/28/24 07:01 128 H 99 08/28/24 06:56 112 H 100 08/28/24 06:51 115 H 99 08/28/24 06:50 108 H 88 L 08/28/24 06:46 115 H 100 08/28/24 06:41 121 H 100 08/28/24 06:36 100 08/28/24 06:36 114 H 08/28/24 06:36 117 H 126/84 08/28/24 06:31 114 H 100 08/28/24 06:26 106 H 100 08/28/24 06:21 105 H 100 08/28/24 06:20 96 H 115/58 L 08/28/24 06:19 115 H 87 L 08/28/24 06:16 105 H 100 08/28/24 06:11 103 H 98 08/28/24 06:06 90 97 08/28/24 06:05 85 94/52 L 08/28/24 06:01 85 96 08/28/24 05:56 79 95 08/28/24 05:51 76 95 08/28/24 05:50 75 87/53 L 08/28/24 05:46 75 95 08/28/24 05:41 77 95 08/28/24 05:36 96 H 95 08/28/24 05:35 92 H 94/52 L 08/28/24 05:31 75 93 08/28/24 05:26 76 92 08/28/24 05:21 75 92 08/28/24 05:20 74 82/48 L 08/28/24 05:16 74 92 08/28/24 05:11 77 92 08/28/24 05:06 76 93 08/28/24 05:05 75 84/51 L 08/28/24 05:01 77 93 08/28/24 04:56 81 93 08/28/24 04:51 93 08/28/24 04:51 82 08/28/24 04:51 81 83/45 L 08/28/24 04:46 86 94 08/28/24 04:41 86 94 08/28/24 04:36 82 94 08/28/24 04:35 74 89/51 L 08/28/24 04:31 86 96 08/28/24 04:26 120 H 95 08/28/24 04:21 94 08/28/24 04:21 102 H 08/28/24 04:21 111 H 94/52 L 08/28/24 04:16 101 H 92 08/28/24 04:11 93 H 92 08/28/24 04:06 93 H 93 08/28/24 04:04 102 H 93/54 L 08/28/24 04:01 92 H 93 08/28/24 03:56 98 H 93 08/28/24 03:51 95 H 95 08/28/24 03:50 96 H 94/51 L 08/28/24 03:46 96 H 93 08/28/24 03:41 97 H 97 08/28/24 03:36 103 H 103/56 L 95 08/28/24 03:31 113 H 95 08/28/24 03:26 105 H 95 08/28/24 03:21 108 H 95 08/28/24 03:19 94 H 106/56 L 08/28/24 03:16 81 93 08/28/24 03:11 86 93 08/28/24 03:06 89 94 08/28/24 03:04 86 112/61 08/28/24 03:01 93 H 94 08/28/24 02:56 110 H 95 08/28/24 02:51 96 08/28/24 02:51 97 H 08/28/24 02:51 91 H 112/61 08/28/24 02:46 105 H 96 08/28/24 02:41 85 93 08/28/24 02:36 85 95 08/28/24 02:35 85 110/70 08/28/24 02:31 93 H 96 08/28/24 02:26 87 98 08/28/24 02:21 109 H 99 08/28/24 02:19 112 H 111/73 08/28/24 02:16 110 H 98 08/28/24 02:11 108 H 99 08/28/24 02:06 98 H 109/70 98 08/28/24 02:01 111 H 99 08/28/24 01:56 110 H 100 08/28/24 01:51 112 H 100 08/28/24 01:50 118 H 104/71 08/28/24 01:46 106 H 99 08/28/24 01:41 108 H 100 08/28/24 01:36 135 H 100 08/28/24 01:35 117 H 108/61 08/28/24 01:31 126 H 98 08/28/24 01:30 36.6 C 08/28/24 01:26 140 H 100 08/28/24 01:21 108 H 95 08/28/24 01:20 122 H 112/62 08/28/24 01:16 113 H 99 08/28/24 01:11 113 H 97 08/28/24 01:06 114 H 99 08/28/24 01:04 123 H 120/79 08/28/24 01:01 122 H 100 08/28/24 00:56 141 H 100 08/28/24 00:51 96 08/28/24 00:51 140 H 08/28/24 00:51 137 H 125/81 08/28/24 00:46 112 H 100 08/28/24 00:41 110 H 99 08/28/24 00:36 114 H 98 08/28/24 00:35 107 H 109/71 08/28/24 00:31 102 H 95 08/28/24 00:26 112 H 99 08/28/24 00:21 108 H 99 08/28/24 00:19 100 H 115/71 08/28/24 00:16 104 H 100 08/28/24 00:13 107 H 84 L 08/28/24 00:11 101 H 100 08/28/24 00:06 109 H 97 08/28/24 00:05 114 H 115/73 08/28/24 00:03 117 H 88 L 08/28/24 00:01 76 97 08/27/24 23:56 75 97 08/27/24 23:51 76 99 08/27/24 23:50 74 99/56 L 08/27/24 23:46 78 98 08/27/24 23:41 77 100 08/27/24 23:36 97 H 100 08/27/24 23:35 89 108/60 08/27/24 23:31 98 08/27/24 23:31 89 08/27/24 23:31 89 87 L 08/27/24 23:30 36.6 C 08/27/24 23:26 123 H 99 08/27/24 23:21 91 H 95 08/27/24 23:19 93 H 112/76 08/27/24 23:16 92 H 94 08/27/24 23:11 91 H 94 08/27/24 23:06 95 08/27/24 23:06 93 H 08/27/24 23:06 93 H 111/74 08/27/24 23:01 89 95 08/27/24 22:56 97 H 95 08/27/24 22:51 96 H 98 08/27/24 22:49 103 H 122/79 08/27/24 22:46 100 H 98 08/27/24 22:41 96 H 98 08/27/24 22:36 98 H 117/77 100 08/27/24 22:31 99 H 99 08/27/24 22:26 95 H 97 08/27/24 22:21 89 94 08/27/24 22:19 100 H 94/55 L 08/27/24 22:16 83 93 08/27/24 22:11 85 93
[2024-08-28] MEDS: fentANYL 2 MCG/ML BUPIVacaine 0.125%-NSS 100ML BAG ONE (10:15)
--- NOTE | 2024-08-28 11:09 | Obstetrical Progress Note ---
Date of Service August 28, 2024 Assessment & Plan Admission and Anticipated Discharge Date Admission Date: August 26, 2024 Subjective Patient is reevaluated. Station of head is about the same, large caput+ FHR had been categ I Contractions irregular Discussed to continue with pushing vs C section. Patient does not want Csection. She wants to push for another hour. Offered her rest for 15-20 min but she wants to continue with pushing Continue to monitor closely Results & Data Vital Signs (Past 12 Hours) Vital Signs Temp Pulse Resp BP Pulse Ox 08/28/24 11:03 136 H 96 08/28/24 10:59 130 H 87 L 08/28/24 10:58 128 H 94 08/28/24 10:53 166 H 99 08/28/24 10:48 150 H 98 08/28/24 10:43 120 H 95 08/28/24 10:38 149 H 96 08/28/24 10:33 127 H 95 08/28/24 10:31 20 08/28/24 10:31 20 08/28/24 10:28 136 H 95 08/28/24 10:27 122 H 121/62 08/28/24 10:23 124 H 96 08/28/24 10:18 151 H 97 08/28/24 10:16 20 08/28/24 10:16 37.0 C 08/28/24 10:13 158 H 96 08/28/24 10:08 121 H 95 08/28/24 10:03 127 H 96 08/28/24 09:58 161 H 97 08/28/24 09:53 126 H 95 08/28/24 09:48 149 H 99 08/28/24 09:46 20 08/28/24 09:46 20 08/28/24 09:43 120 H 97 08/28/24 09:11 109 H 96 08/28/24 09:10 121 H 90 08/28/24 09:06 109 H 98 08/28/24 09:05 107 H 84 L 08/28/24 09:01 115 H 97 08/28/24 08:58 136 H 86 L 08/28/24 08:56 116 H 96 08/28/24 08:54 20 08/28/24 08:54 37.0 C 08/28/24 08:51 122 H 95 08/28/24 08:46 112 H 95 08/28/24 08:41 155 H 88 L 08/28/24 08:39 136 H 87 L 08/28/24 08:36 154 H 97 08/28/24 08:35 117 H 122/71 08/28/24 08:33 120 H 82 L 08/28/24 08:31 138 H 20 97 08/28/24 08:26 137 H 86 L 08/28/24 08:21 75 L 08/28/24 08:21 123 H 08/28/24 08:21 119 H 80 L 08/28/24 08:20 134 H 113/65 08/28/24 08:16 142 H 99 08/28/24 08:11 129 H 98 08/28/24 08:06 143 H 100 08/28/24 08:04 126 H 115/76 08/28/24 08:01 126 H 20 98 08/28/24 07:56 132 H 97 08/28/24 07:51 116 H 100 08/28/24 07:50 108 H 120/81 08/28/24 07:46 111 H 100 08/28/24 07:41 111 H 97 08/28/24 07:37 114 H 119/82 08/28/24 07:36 105 H 98 08/28/24 07:35 36.8 C 20 08/28/24 07:34 127 H 89 L 08/28/24 07:31 114 H 98 08/28/24 07:30 20 08/28/24 07:30 20 08/28/24 07:26 113 H 99 08/28/24 07:21 116 H 99 08/28/24 07:19 111 H 119/80 08/28/24 07:16 112 H 98 08/28/24 07:11 121 H 100 08/28/24 07:08 119 H 89 L 08/28/24 07:06 121 H 100 08/28/24 07:05 117 H 120/76 08/28/24 07:01 128 H 99 08/28/24 06:56 112 H 100 08/28/24 06:51 115 H 99 08/28/24 06:50 108 H 88 L 08/28/24 06:46 115 H 100 08/28/24 06:41 121 H 100 08/28/24 06:36 100 08/28/24 06:36 114 H 08/28/24 06:36 117 H 126/84 08/28/24 06:31 114 H 100 08/28/24 06:26 106 H 100 08/28/24 06:21 105 H 100 08/28/24 06:20 96 H 115/58 L 08/28/24 06:19 115 H 87 L 08/28/24 06:16 105 H 100 08/28/24 06:11 103 H 98 08/28/24 06:06 90 97 08/28/24 06:05 85 94/52 L 08/28/24 06:01 85 96 08/28/24 05:56 79 95 08/28/24 05:51 76 95 08/28/24 05:50 75 87/53 L 08/28/24 05:46 75 95 08/28/24 05:41 77 95 08/28/24 05:36 96 H 95 08/28/24 05:35 92 H 94/52 L 08/28/24 05:31 75 93 08/28/24 05:26 76 92 08/28/24 05:21 75 92 08/28/24 05:20 74 82/48 L 08/28/24 05:16 74 92 08/28/24 05:11 77 92 08/28/24 05:06 76 93 08/28/24 05:05 75 84/51 L 08/28/24 05:01 77 93 08/28/24 04:56 81 93 08/28/24 04:51 93 08/28/24 04:51 82 08/28/24 04:51 81 83/45 L 08/28/24 04:46 86 94 08/28/24 04:41 86 94 08/28/24 04:36 82 94 08/28/24 04:35 74 89/51 L 08/28/24 04:31 86 96 08/28/24 04:26 120 H 95 08/28/24 04:21 94 08/28/24 04:21 102 H 08/28/24 04:21 111 H 94/52 L 08/28/24 04:16 101 H 92 08/28/24 04:11 93 H 92 08/28/24 04:06 93 H 93 08/28/24 04:04 102 H 93/54 L 08/28/24 04:01 92 H 93 02/21/25 03:56 98 H 93 08/28/24 03:51 95 H 95 08/28/24 03:50 96 H 94/51 L 08/28/24 03:46 96 H 93 08/28/24 03:41 97 H 97 08/28/24 03:36 103 H 103/56 L 95 08/28/24 03:31 113 H 95 08/28/24 03:26 105 H 95 08/28/24 03:21 108 H 95 08/28/24 03:19 94 H 106/56 L 08/28/24 03:16 81 93 08/28/24 03:11 86 93 08/28/24 03:06 89 94 08/28/24 03:04 86 112/61 08/28/24 03:01 93 H 94 08/28/24 02:56 110 H 95 08/28/24 02:51 96 08/28/24 02:51 97 H 08/28/24 02:51 91 H 112/61 08/28/24 02:46 105 H 96 08/28/24 02:41 85 93 08/28/24 02:36 85 95 08/28/24 02:35 85 110/70 08/28/24 02:31 93 H 96 08/28/24 02:26 87 98 08/28/24 02:21 109 H 99 08/28/24 02:19 112 H 111/73 08/28/24 02:16 110 H 98 08/28/24 02:11 108 H 99 08/28/24 02:06 98 H 109/70 98 08/28/24 02:01 111 H 99 08/28/24 01:56 110 H 100 08/28/24 01:51 112 H 100 08/28/24 01:50 118 H 104/71 08/28/24 01:46 106 H 99 08/28/24 01:41 108 H 100 08/28/24 01:36 135 H 100 08/28/24 01:35 117 H 108/61 08/28/24 01:31 126 H 98 08/28/24 01:30 36.6 C 08/28/24 01:26 140 H 100 08/28/24 01:21 108 H 95 08/28/24 01:20 122 H 112/62 08/28/24 01:16 113 H 99 02/21/25 01:11 113 H 97 08/28/24 01:06 114 H 99 08/28/24 01:04 123 H 120/79 08/28/24 01:01 122 H 100 08/28/24 00:56 141 H 100 08/28/24 00:51 96 08/28/24 00:51 140 H 08/28/24 00:51 137 H 125/81 08/28/24 00:46 112 H 100 08/28/24 00:41 110 H 99 08/28/24 00:36 114 H 98 08/28/24 00:35 107 H 109/71 08/28/24 00:31 102 H 95 08/28/24 00:26 112 H 99 08/28/24 00:21 108 H 99 08/28/24 00:19 100 H 115/71 08/28/24 00:16 104 H 100 08/28/24 00:13 107 H 84 L 08/28/24 00:11 101 H 100 08/28/24 00:06 109 H 97 08/28/24 00:05 114 H 115/73 08/28/24 00:03 117 H 88 L 08/28/24 00:01 76 97 08/27/24 23:56 75 97 08/27/24 23:51 76 99 08/27/24 23:50 74 99/56 L 08/27/24 23:46 78 98 08/27/24 23:41 77 100 08/27/24 23:36 97 H 100 08/27/24 23:35 89 108/60 08/27/24 23:31 98 08/27/24 23:31 89 08/27/24 23:31 89 87 L 08/27/24 23:30 36.6 C 08/27/24 23:26 123 H 99 08/27/24 23:21 91 H 95 08/27/24 23:19 93 H 112/76 08/27/24 23:16 92 H 94 08/27/24 23:11 91 H 94
[2024-08-28] MEDS: MINERAL OIL 30 ML UDC ONE (14:40)
--- NOTE | 2024-08-28 14:58 | Obstetrical Progress Note ---
Date of Service August 28, 2024 Assessment & Plan Admission and Anticipated Discharge Date Admission Date: August 26, 2024 Subjective Patient rested for about an hour and then started pushing again around 1 pm, unable to bring the head down despite good efforts with pushes. FHR had been categ I Recommended Csection and she accepted. Patient understands C section is a major surgery, with risks including but not limited to bleeding , infection, injury to surrounding organs like bowels, bladder, ureters, adhesions, scarring, wound infection, blood cloths in legs/ lungs, longer recovery. All questions were answered. She signed an informed consent. Results & Data Vital Signs (Past 12 Hours) Vital Signs Temp Pulse Resp BP Pulse Ox 08/28/24 14:54 139 H 97 08/28/24 14:50 134 H 124/77 08/28/24 14:49 131 H 96 08/28/24 14:44 115 H 97 08/28/24 14:39 119 H 97 08/28/24 14:36 110 H 88 L 08/28/24 14:35 109 H 110/76 08/28/24 14:34 119 H 97 08/28/24 14:29 106 H 96 08/28/24 14:24 108 H 97 08/28/24 14:19 119 H 96 08/28/24 14:14 110 H 96 08/28/24 14:09 131 H 94 08/28/24 14:04 95 08/28/24 14:04 123 H 08/28/24 14:04 113 H 124/60 08/28/24 13:59 117 H 95 08/28/24 13:54 122 H 93 08/28/24 13:49 95 08/28/24 13:49 124 H 08/28/24 13:49 120 H 132/77 08/28/24 13:44 122 H 94 08/28/24 13:39 117 H 94 08/28/24 13:34 120 H 95 08/28/24 13:33 121 H 133/75 08/28/24 13:30 20 08/28/24 13:30 37.0 C 20 08/28/24 13:29 118 H 96 08/28/24 13:24 149 H 94 08/28/24 13:19 116 H 95 08/28/24 13:14 115 H 94 08/28/24 13:09 111 H 95 08/28/24 13:04 125 H 95 08/28/24 12:59 138 H 96 08/28/24 12:58 115 H 114/71 08/28/24 12:54 123 H 95 08/28/24 12:50 114 H 84 L 08/28/24 12:48 126 H 98 08/28/24 12:43 108 H 98 08/28/24 12:38 113 H 99 08/28/24 12:33 111 H 97 08/28/24 12:30 20 08/28/24 12:30 20 08/28/24 12:28 108 H 98 08/28/24 12:23 113 H 97 08/28/24 12:18 113 H 96 08/28/24 12:13 112 H 97 08/28/24 12:08 111 H 98 08/28/24 12:03 102 H 96 08/28/24 11:58 114 H 96 08/28/24 11:53 116 H 96 08/28/24 11:48 116 H 96 08/28/24 11:43 121 H 96 08/28/24 11:38 117 H 96 08/28/24 11:33 127 H 95 08/28/24 11:28 117 H 95 08/28/24 11:23 117 H 94 08/28/24 11:18 114 H 95 08/28/24 11:13 131 H 96 08/28/24 11:08 123 H 93 08/28/24 11:03 136 H 96 08/28/24 11:01 20 08/28/24 11:01 20 08/28/24 10:59 130 H 87 L 08/28/24 10:58 128 H 94 08/28/24 10:53 166 H 99 08/28/24 10:48 150 H 98 08/28/24 10:46 20 08/28/24 10:46 20 08/28/24 10:43 120 H 95 08/28/24 10:38 149 H 96 08/28/24 10:33 127 H 95 08/28/24 10:31 20 08/28/24 10:31 20 08/28/24 10:28 136 H 95 08/28/24 10:27 122 H 121/62 08/28/24 10:23 124 H 96 08/28/24 10:18 151 H 97 08/28/24 10:16 20 08/28/24 10:16 37.0 C 20 08/28/24 10:13 158 H 96 08/28/24 10:08 121 H 95 08/28/24 10:03 127 H 96 08/28/24 09:58 161 H 97 08/28/24 09:53 126 H 95 08/28/24 09:48 149 H 99 08/28/24 09:46 20 08/28/24 09:46 20 08/28/24 09:43 120 H 97 08/28/24 09:11 109 H 96 08/28/24 09:10 121 H 90 08/28/24 09:06 109 H 98 08/28/24 09:05 107 H 84 L 08/28/24 09:01 115 H 97 08/28/24 08:58 136 H 86 L 08/28/24 08:56 116 H 96 08/28/24 08:54 20 08/28/24 08:54 37.0 C 20 08/28/24 08:51 122 H 95 08/28/24 08:46 112 H 95 08/28/24 08:41 155 H 88 L 08/28/24 08:39 136 H 87 L 08/28/24 08:36 154 H 97 08/28/24 08:35 117 H 122/71 08/28/24 08:33 120 H 82 L 08/28/24 08:31 138 H 20 97 08/28/24 08:26 137 H 86 L 08/28/24 08:21 75 L 08/28/24 08:21 123 H 08/28/24 08:21 119 H 80 L 08/28/24 08:20 134 H 113/65 08/28/24 08:16 142 H 99 08/28/24 08:11 129 H 98 08/28/24 08:06 143 H 100 08/28/24 08:04 126 H 115/76 08/28/24 08:01 126 H 20 98 08/28/24 07:56 132 H 97 08/28/24 07:51 116 H 100 08/28/24 07:50 108 H 120/81 08/28/24 07:46 111 H 100 08/28/24 07:41 111 H 97 08/28/24 07:37 114 H 119/82 08/28/24 07:36 105 H 98 08/28/24 07:35 36.8 C 20 08/28/24 07:34 127 H 89 L 08/28/24 07:31 114 H 98 08/28/24 07:30 20 08/28/24 07:30 20 08/28/24 07:26 113 H 99 08/28/24 07:21 116 H 99 08/28/24 07:19 111 H 119/80 08/28/24 07:16 112 H 98 08/28/24 07:11 121 H 100 08/28/24 07:08 119 H 89 L 08/28/24 07:06 121 H 100 08/28/24 07:05 117 H 120/76 08/28/24 07:01 128 H 99 08/28/24 06:56 112 H 100 08/28/24 06:51 115 H 99 08/28/24 06:50 108 H 88 L 08/28/24 06:46 115 H 100 08/28/24 06:41 121 H 100 08/28/24 06:36 100 08/28/24 06:36 114 H 08/28/24 06:36 117 H 126/84 08/28/24 06:31 114 H 100 08/28/24 06:26 106 H 100 08/28/24 06:21 105 H 100 08/28/24 06:20 96 H 115/58 L 08/28/24 06:19 115 H 87 L 08/28/24 06:16 105 H 100 08/28/24 06:11 103 H 98 08/28/24 06:06 90 97 08/28/24 06:05 85 94/52 L 08/28/24 06:01 85 96 08/28/24 05:56 79 95 08/28/24 05:51 76 95 08/28/24 05:50 75 87/53 L 08/28/24 05:46 75 95 08/28/24 05:41 77 95 08/28/24 05:36 96 H 95 08/28/24 05:35 92 H 94/52 L 08/28/24 05:31 75 93 08/28/24 05:26 76 92 08/28/24 05:21 75 92 08/28/24 05:20 74 82/48 L 08/28/24 05:16 74 92 08/28/24 05:11 77 92 08/28/24 05:06 76 93 08/28/24 05:05 75 84/51 L 08/28/24 05:01 77 93 08/28/24 04:56 81 93 08/28/24 04:51 93 08/28/24 04:51 82 08/28/24 04:51 81 83/45 L 08/28/24 04:46 86 94 08/28/24 04:41 86 94 08/28/24 04:36 82 94 08/28/24 04:35 74 89/51 L 08/28/24 04:31 86 96 08/28/24 04:26 120 H 95 08/28/24 04:21 94 08/28/24 04:21 102 H 08/28/24 04:21 111 H 94/52 L 08/28/24 04:16 101 H 92 08/28/24 04:11 93 H 92 08/28/24 04:06 93 H 93 08/28/24 04:04 102 H 93/54 L 08/28/24 04:01 92 H 93 08/28/24 03:56 98 H 93 08/28/24 03:51 95 H 95 08/28/24 03:50 96 H 94/51 L 08/28/24 03:46 96 H 93 08/28/24 03:41 97 H 97 08/28/24 03:36 103 H 103/56 L 95 08/28/24 03:31 113 H 95 08/28/24 03:26 105 H 95 08/28/24 03:21 108 H 95 08/28/24 03:19 94 H 106/56 L 08/28/24 03:16 81 93 08/28/24 03:11 86 93 08/28/24 03:06 89 94 08/28/24 03:04 86 112/61 08/28/24 03:01 93 H 94
[2024-08-28] MEDS: ACETAMINOPHEN 500 MG TAB ONE (15:04)
[2024-08-28] MEDS: CITRIC ACID/SODIUM CITRATE 15 ML UDC ONE (15:06)
[2024-08-28] MEDS ORDERED: PHENYLEPHRINE HCL 25 MG/250 ML NSS IV ONE (15:09)
[2024-08-28] MEDS ORDERED: DEXAMETHASONE SOD INJ 4 MG/ML VIAL ONE (15:10)
[2024-08-28] MEDS ORDERED: OXYTOCIN 10 UNITS/ML VIAL ONE (15:10)
[2024-08-28] MEDS ORDERED: ONDANSETRON INJ 2 MG/ML 2 ML VIAL ONE (15:10)
[2024-08-28] MEDS ORDERED: MoRPHine SULFATE PF 1 MG/ML 10 ML AMP/VIAL ONE (15:11)
[2024-08-28] MEDS ORDERED: LIDOCAINE 2%/EPINEPHRINE 1:200,000 20 ML PF ONE (15:11)
[2024-08-28] MEDS: cefOXitin 2,000 MG in DEXTROSE 5 % MINI-B 50 ML IV SCH (15:13)
[2024-08-28 15:24] LABS: Hematocrit (blood only) 35.5 % (37.0-47.0); Hemoglobin 12.1 g/dl (12.0-16.0); Mean Corpuscular Hgb Conc 34.1 g/dL (32.0-36.0); Mean Corpuscular Volume 88.1 fL (80.0-100.0); Platelet Count 176 K/uL (130-400); RDW Coefficient of Variation 13.1 % (11.5-14.5); RDW Standard Deviation 41.2 fL (36.4-46.3); Red Blood Count 4.03 M/uL (4.20-5.40); White Blood Count 20.24 K/ul (4.8-10.8)
[2024-08-28] MEDS: AZITHROMYCIN 500 MG in SODIUM CHLORIDE 0.9% 250 ML IV SCH (15:30)
[2024-08-28] MEDS: OXYTOCIN 10 UNITS/ML 10ML VIAL IM ONE (15:50)
[2024-08-28] MEDS ORDERED: METHYLERGONOVINE MALEATE 0.2 MG/ML AMP ONE (15:55)
[2024-08-28] MEDS ORDERED: MIDAZOLAM HCL 1 MG/ML 2ML VIAL ONE (16:00)
[2024-08-28] MEDS ORDERED: NALBUPHINE HCL INJ 10 MG/ML AMP IV PRN (16:04)
[2024-08-28] MEDS ORDERED: ONDANSETRON INJ 2 MG/ML 2 ML VIAL IV PRN ×2 (16:04→16:33)
[2024-08-28] MEDS ORDERED: NALOXONE HCL 0.08 MG in SYRINGE 1.8 ML IV PRN (16:04)
[2024-08-28] MEDS ORDERED: PROMETHAZINE 6.25 MG/50.25 ML BAG IV PRN (16:04)
[2024-08-28] MEDS ORDERED: NALOXONE HCL 0.4 MG/1 ML VIAL/CARP IV PRN (16:04)
[2024-08-28] MEDS ORDERED: HYDROmorphone INJ 0.5 MG/0.5 ML SYR IV PRN ×2 (16:04→16:33)
[2024-08-28] MEDS ORDERED: NALOXONE HCL 1 MG in SODIUM CHLORIDE 0.9% 1,000 ML IV PRN (16:04)
[2024-08-28] MEDS ORDERED: ePHEDrine sulfate 50 MG/ML AMP IV PRN (16:04)
[2024-08-28] MEDS ORDERED: oxyCODONE HCL IR 5 MG TAB (IMMEDIATE RELEASE) PO PRN (16:04)
[2024-08-28] MEDS ORDERED: NO NARCOTICS OR SEDATIVES SCH (16:15)
[2024-08-28] MEDS ORDERED: DC INTRASPINAL MORPHINE SCH (16:15)
--- NOTE | 2024-08-28 16:32 | Anesthesiology Progress Note ---
Date of Service August 28, 2024 Anesthesia Post Procedure Vital Signs Vital Signs: Temp Pulse Resp BP Pulse Ox 08/28/24 16:29 108 H 110/57 L 08/28/24 16:28 117 H 100 08/28/24 15:14 127 H 95 08/28/24 15:09 124 H 95 08/28/24 15:04 132 H 95 08/28/24 15:03 126 H 125/74 08/28/24 14:59 137 H 96 08/28/24 14:54 139 H 97 08/28/24 14:50 134 H 124/77 08/28/24 14:49 131 H 96 08/28/24 14:44 115 H 97 08/28/24 14:39 119 H 97 08/28/24 14:36 110 H 88 L 08/28/24 14:35 109 H 110/76 08/28/24 14:34 119 H 97 08/28/24 14:31 20 08/28/24 14:31 20 08/28/24 14:29 106 H 96 08/28/24 14:24 108 H 97 08/28/24 14:19 119 H 96 08/28/24 14:14 110 H 96 08/28/24 14:09 131 H 94 08/28/24 14:04 95 08/28/24 14:04 123 H 08/28/24 14:04 113 H 124/60 08/28/24 13:59 117 H 95 08/28/24 13:54 122 H 93 08/28/24 13:49 95 08/28/24 13:49 124 H 08/28/24 13:49 120 H 132/77 08/28/24 13:44 122 H 94 08/28/24 13:39 117 H 94 08/28/24 13:34 120 H 95 08/28/24 13:33 121 H 133/75 08/28/24 13:30 20 08/28/24 13:30 37.0 C 20 08/28/24 13:29 118 H 96 08/28/24 13:24 149 H 94 08/28/24 13:19 116 H 95 08/28/24 13:14 115 H 94 08/28/24 13:09 111 H 95 08/28/24 13:04 125 H 95 08/28/24 12:59 138 H 96 08/28/24 12:58 115 H 114/71 08/28/24 12:54 123 H 95 08/28/24 12:50 114 H 84 L 08/28/24 12:48 126 H 98 08/28/24 12:43 108 H 98 08/28/24 12:38 113 H 99 08/28/24 12:33 111 H 97 08/28/24 12:30 20 08/28/24 12:30 20 08/28/24 12:28 108 H 98 08/28/24 12:23 113 H 97 08/28/24 12:18 113 H 96 08/28/24 12:13 112 H 97 08/28/24 12:08 111 H 98 08/28/24 12:03 102 H 96 08/28/24 11:58 114 H 96 08/28/24 11:53 116 H 96 08/28/24 11:48 116 H 96 08/28/24 11:43 121 H 96 08/28/24 11:38 117 H 96 08/28/24 11:33 127 H 95 08/28/24 11:28 117 H 95 08/28/24 11:23 117 H 94 08/28/24 11:18 114 H 95 08/28/24 11:13 131 H 96 08/28/24 11:08 123 H 93 08/28/24 11:03 136 H 96 08/28/24 11:01 20 08/28/24 11:01 08/28/24 10:59 130 H 87 L 08/28/24 10:58 128 H 94 08/28/24 10:53 166 H 99 08/28/24 10:48 150 H 98 08/28/24 10:46 20 08/28/24 10:46 20 08/28/24 10:43 120 H 95 08/28/24 10:38 149 H 96 08/28/24 10:33 127 H 95 08/28/24 10:31 20 08/28/24 10:31 20 08/28/24 10:28 136 H 95 08/28/24 10:27 122 H 121/62 08/28/24 10:23 124 H 96 08/28/24 10:18 151 H 97 08/28/24 10:16 20 08/28/24 10:16 37.0 C 20 08/28/24 10:13 158 H 96 02/21/25 10:08 121 H 95 08/28/24 10:03 127 H 96 08/28/24 09:58 161 H 97 08/28/24 09:53 126 H 95 08/28/24 09:48 149 H 99 08/28/24 09:46 20 08/28/24 09:46 20 08/28/24 09:43 120 H 97 08/28/24 09:11 109 H 96 08/28/24 09:10 121 H 90 08/28/24 09:06 109 H 98 08/28/24 09:05 107 H 84 L 08/28/24 09:01 115 H 97 08/28/24 08:58 136 H 86 L 08/28/24 08:56 116 H 96 08/28/24 08:54 20 08/28/24 08:54 37.0 C 08/28/24 08:51 122 H 95 08/28/24 08:46 112 H 95 08/28/24 08:41 155 H 88 L 08/28/24 08:39 136 H 87 L 08/28/24 08:36 154 H 97 08/28/24 08:35 117 H 122/71 08/28/24 08:33 120 H 82 L 08/28/24 08:31 138 H 20 97 08/28/24 08:26 137 H 86 L 08/28/24 08:21 75 L 08/28/24 08:21 123 H 08/28/24 08:21 119 H 80 L 08/28/24 08:20 134 H 113/65 08/28/24 08:16 142 H 99 08/28/24 08:11 129 H 98 08/28/24 08:06 143 H 100 08/28/24 08:04 126 H 115/76 08/28/24 08:01 126 H 20 98 08/28/24 07:56 132 H 97 08/28/24 07:51 116 H 100 08/28/24 07:50 108 H 120/81 08/28/24 07:46 111 H 100 08/28/24 07:41 111 H 97 08/28/24 07:37 114 H 119/82 08/28/24 07:36 105 H 98 08/28/24 07:35 36.8 C 20 08/28/24 07:34 127 H 89 L 02/21/25 07:31 114 H 98 08/28/24 07:30 20 08/28/24 07:30 20 08/28/24 07:26 113 H 99 08/28/24 07:21 116 H 99 08/28/24 07:19 111 H 119/80 08/28/24 07:16 112 H 98 08/28/24 07:11 121 H 100 08/28/24 07:08 119 H 89 L 08/28/24 07:06 121 H 100 08/28/24 07:05 117 H 120/76 08/28/24 07:01 128 H 99 08/28/24 06:56 112 H 100 08/28/24 06:51 115 H 99 08/28/24 06:50 108 H 88 L 08/28/24 06:46 115 H 100 08/28/24 06:41 121 H 100 08/28/24 06:36 100 08/28/24 06:36 114 H 08/28/24 06:36 117 H 126/84 08/28/24 06:31 114 H 100 08/28/24 06:26 106 H 100 08/28/24 06:21 105 H 100 08/28/24 06:20 96 H 115/58 L 08/28/24 06:19 115 H 87 L 08/28/24 06:16 105 H 100 08/28/24 06:11 103 H 98 08/28/24 06:06 90 97 08/28/24 06:05 85 94/52 L 08/28/24 06:01 85 96 08/28/24 05:56 79 95 08/28/24 05:51 76 95 08/28/24 05:50 75 87/53 L 08/28/24 05:46 75 95 08/28/24 05:41 77 95 08/28/24 05:36 96 H 95 08/28/24 05:35 92 H 94/52 L 08/28/24 05:31 75 93 08/28/24 05:26 76 92 08/28/24 05:21 75 92 08/28/24 05:20 74 82/48 L 08/28/24 05:16 74 92 08/28/24 05:11 77 92 08/28/24 05:06 76 93 08/28/24 05:05 75 84/51 L 08/28/24 05:01 77 93 08/28/24 04:56 81 93 08/28/24 04:51 93 08/28/24 04:51 82 08/28/24 04:51 81 83/45 L 08/28/24 04:46 86 94 08/28/24 04:41 86 94 08/28/24 04:36 82 94 08/28/24 04:35 74 89/51 L 08/28/24 04:31 86 96 08/28/24 04:26 120 H 95 08/28/24 04:21 94 08/28/24 04:21 102 H 08/28/24 04:21 111 H 94/52 L 08/28/24 04:16 101 H 92 08/28/24 04:11 93 H 92 08/28/24 04:06 93 H 93 08/28/24 04:04 102 H 93/54 L 08/28/24 04:01 92 H 93 08/28/24 03:56 98 H 93 08/28/24 03:51 95 H 95 08/28/24 03:50 96 H 94/51 L 08/28/24 03:46 96 H 93 08/28/24 03:41 97 H 97 08/28/24 03:36 103 H 103/56 L 95 08/28/24 03:31 113 H 95 08/28/24 03:26 105 H 95 08/28/24 03:21 108 H 95 08/28/24 03:19 94 H 106/56 L 08/28/24 03:16 81 93 08/28/24 03:11 86 93 08/28/24 03:06 89 94 08/28/24 03:04 86 112/61 08/28/24 03:01 93 H 94 08/28/24 02:56 110 H 95 08/28/24 02:51 96 08/28/24 02:51 97 H 08/28/24 02:51 91 H 112/61 08/28/24 02:46 105 H 96 08/28/24 02:41 85 93 08/28/24 02:36 85 95 08/28/24 02:35 85 110/70 08/28/24 02:31 93 H 96 08/28/24 02:26 87 98 08/28/24 02:21 109 H 99 08/28/24 02:19 112 H 111/73 08/28/24 02:16 110 H 98 08/28/24 02:11 108 H 99 08/28/24 02:06 98 H 109/70 98 08/28/24 02:01 111 H 99 08/28/24 01:56 110 H 100 08/28/24 01:51 112 H 100 08/28/24 01:50 118 H 104/71 08/28/24 01:46 106 H 99 08/28/24 01:41 108 H 100 08/28/24 01:36 135 H 100 08/28/24 01:35 117 H 108/61 08/28/24 01:31 126 H 98 08/28/24 01:30 36.6 C 08/28/24 01:26 140 H 100 08/28/24 01:21 108 H 95 08/28/24 01:20 122 H 112/62 08/28/24 01:16 113 H 99 08/28/24 01:11 113 H 97 08/28/24 01:06 114 H 99 08/28/24 01:04 123 H 120/79 08/28/24 01:01 122 H 100 08/28/24 00:56 141 H 100 08/28/24 00:51 96 08/28/24 00:51 140 H 08/28/24 00:51 137 H 125/81 08/28/24 00:46 112 H 100 08/28/24 00:41 110 H 99 08/28/24 00:36 114 H 98 08/28/24 00:35 107 H 109/71 08/28/24 00:31 102 H 95 08/28/24 00:26 112 H 99 08/28/24 00:21 108 H 99 08/28/24 00:19 100 H 115/71 08/28/24 00:16 104 H 100 08/28/24 00:13 107 H 84 L 08/28/24 00:11 101 H 100 08/28/24 00:06 109 H 97 08/28/24 00:05 114 H 115/73 08/28/24 00:03 117 H 88 L 08/28/24 00:01 76 97 08/27/24 23:56 75 97 08/27/24 23:51 76 99 02/20/25 23:50 74 99/56 L 08/27/24 23:46 78 98 08/27/24 23:41 77 100 08/27/24 23:36 97 H 100 08/27/24 23:35 89 108/60 08/27/24 23:31 98 08/27/24 23:31 89 08/27/24 23:31 89 87 L 08/27/24 23:30 36.6 C 08/27/24 23:26 123 H 99 08/27/24 23:21 91 H 95 08/27/24 23:19 93 H 112/76 08/27/24 23:16 92 H 94 08/27/24 23:11 91 H 94 08/27/24 23:06 95 08/27/24 23:06 93 H 08/27/24 23:06 93 H 111/74 08/27/24 23:01 89 95 08/27/24 22:56 97 H 95 08/27/24 22:51 96 H 98 08/27/24 22:49 103 H 122/79 08/27/24 22:46 100 H 98 08/27/24 22:41 96 H 98 08/27/24 22:36 98 H 117/77 100 08/27/24 22:31 99 H 99 08/27/24 22:26 95 H 97 08/27/24 22:21 89 94 08/27/24 22:19 100 H 94/55 L 08/27/24 22:16 83 93 08/27/24 22:11 85 93 08/27/24 22:06 82 92 08/27/24 22:04 82 91/54 L 08/27/24 22:01 84 92 08/27/24 21:56 85 92 08/27/24 21:51 92 08/27/24 21:51 83 08/27/24 21:51 86 89/50 L 08/27/24 21:46 85 93 08/27/24 21:41 86 93 08/27/24 21:36 88 94 08/27/24 21:34 92 H 94/58 L 08/27/24 21:33 86 94 08/27/24 21:31 96 H 95 08/27/24 21:30 36.9 C 08/27/24 21:28 88 94 08/27/24 21:26 89 95 08/27/24 21:23 86 94 08/27/24 21:21 91 H 96 08/27/24 21:20 94 H 96/57 L 08/27/24 21:16 91 H 99 08/27/24 21:11 117 H 97 08/27/24 21:08 106 H 92 08/27/24 21:06 99 H 97 08/27/24 21:04 109 H 132/80 08/27/24 21:01 103 H 98 08/27/24 20:56 105 H 98 08/27/24 20:51 100 H 97 08/27/24 20:50 105 H 131/82 08/27/24 20:46 107 H 97 08/27/24 20:41 108 H 98 08/27/24 20:36 110 H 97 08/27/24 20:35 104 H 119/80 08/27/24 20:31 108 H 97 08/27/24 20:26 107 H 96 08/27/24 20:21 109 H 94 08/27/24 20:20 109 H 142/77 H 08/27/24 20:16 106 H 98 08/27/24 20:11 101 H 100 08/27/24 20:06 100 H 100 08/27/24 20:05 93 H 103/57 L 08/27/24 20:01 99 H 97 08/27/24 19:56 104 H 97 08/27/24 19:51 107 H 102/59 L 97 08/27/24 19:46 104 H 96 08/27/24 19:41 106 H 97 08/27/24 19:36 101 H 96 08/27/24 19:35 105 H 115/62 08/27/24 19:31 110 H 97 08/27/24 19:26 106 H 98 08/27/24 19:21 113 H 98 08/27/24 19:20 113 H 08/27/24 19:20 115 H 110/63 90 08/27/24 19:16 96 H 99 08/27/24 19:11 97 H 99 08/27/24 19:10 36.7 C 20 08/27/24 19:07 94 H 92 08/27/24 19:06 93 H 99 08/27/24 19:05 86 116/71 08/27/24 19:01 96 H 99 08/27/24 18:56 85 99 02/20/25 18:51 97 H 100 08/27/24 18:49 109 H 109/69 08/27/24 18:46 88 97 08/27/24 18:41 92 H 98 08/27/24 18:36 98 H 99 08/27/24 18:35 83 110/67 08/27/24 18:31 89 98 08/27/24 18:26 80 98 08/27/24 18:21 81 97 08/27/24 18:20 80 18 107/63 08/27/24 18:16 89 99 08/27/24 18:11 89 93 08/27/24 18:06 81 97 08/27/24 18:04 93 H 111/70 08/27/24 18:01 95 H 97 08/27/24 17:56 105 H 98 08/27/24 17:51 98 H 96 08/27/24 17:50 92 H 123/75 08/27/24 17:46 95 H 97 08/27/24 17:41 96 H 97 08/27/24 17:36 83 98 08/27/24 17:35 87 18 119/78 08/27/24 17:31 95 H 98 08/27/24 17:26 86 98 08/27/24 17:21 91 H 99 08/27/24 17:19 83 117/74 08/27/24 17:16 88 97 08/27/24 17:11 92 H 98 08/27/24 17:06 108 H 97 08/27/24 17:04 86 125/81 08/27/24 17:02 104 H 94 08/27/24 17:01 106 H 98 08/27/24 16:56 94 H 100 08/27/24 16:51 92 H 99 08/27/24 16:50 37.0 C 206 H 16 131/74 08/27/24 16:46 97 H 97 08/27/24 16:41 94 H 99 08/27/24 16:36 96 H 98 08/27/24 16:35 85 118/75 Pain Intensity Bilateral Abdomen: Pain Intensity: 3 Transfer of Care Handoff Completed per policy Notes Mental Status: alert / awake / arousable and participated in evaluation Patient Amnestic to Procedure: No Nausea / Vomiting: adequately controlled Pain: adequately controlled Airway Patency, RR, SpO2: stable & adequate BP & HR: stable & adequate Hydration State: stable & adequate Neuraxial Anesthesia: was administered and sensory block is resolving Anesthetic Complications: no major complications apparent and Pt Satisfied with anesthetic care
--- NOTE | 2024-08-28 16:32 | Anesthesia Procedure Note ---
Date of Service August 28, 2024 Anesthesia Post Epidural Note Vital Signs Vital Signs: Temp Pulse Resp BP Pulse Ox 37.0 C 108 H 20 110/57 L 100 08/28/24 13:30 08/28/24 16:29 08/28/24 14:31 08/28/24 16:29 08/28/24 16:28 Pain Intensity Bilateral Abdomen: Pain Intensity: 3 Notes Mental Status: alert / awake / arousable and participated in evaluation Patient Amnestic to Procedure: No Nausea / Vomiting: adequately controlled Pain: adequately controlled Airway Patency, RR, SpO2: stable & adequate BP & HR: stable & adequate Hydration State: stable & adequate Neuraxial Anesthesia: was administered and sensory block is resolving Anesthetic Complications: no major complications apparent and Pt Satisfied with anesthetic care Epidural: Removed without complications and With tip intact
[2024-08-28] MEDS ORDERED: HYDROCORTISONE ACETATE 25 MG SUPP PR PRN (16:33)
[2024-08-28] MEDS ORDERED: BENZOCAINE 20% SPRY 85 APPLN/85 GM CAN EXT PRN (16:33)
[2024-08-28] MEDS ORDERED: MAGNESIUM HYDROXIDE SUSP 30 ML UDC PO PRN (16:33)
[2024-08-28] MEDS ORDERED: PROMETHAZINE 12.5 MG/50.5 ML BAG IV PRN (16:33)
[2024-08-28] MEDS ORDERED: CALCIUM CARBONATE 500 MG CHEWABLE TAB PO PRN (16:33)
[2024-08-28] MEDS ORDERED: SENNA 8.6 MG TAB PO PRN (16:33)
[2024-08-28] MEDS ORDERED: diphenhydrAMINE Capsule 25 MG CAP PO PRN (16:33)
--- NOTE | 2024-08-28 16:44 | Operative Report ---
Post Operative Report Pre & Post Diagnosis Operation Date: 08/28/24 15:20 Pre-Op Diagnosis: 1. Prolonged second stage 2. Arrest of descent 3. Cephalopelvic disproportion Post-Op Diagnosis: same I identified the patient and participated in the time-out.: Yes Procedure Operation Date: 08/28/24 15:20 Actual Procedures p Section in LD for live male at 1547 - Aspen Davila MD Surgeon Aspen Davila MD Independent [employer] Dr Quarles Quantitative Blood Loss (QBL) 618 Findings Consistent with Post-Op Diagnosis Maternal findings, normal uterus fallopian tubes and ovaries. Baby was a viable male infant delivered at 1540 7 PM, Apgars 8/9, cephalic presentation with right occiput posterior position, weight was 3570 gr Specimens Placenta, cord Drains Newman 100 ml clear Anesthesia Type Labor Epidural Complications none Disposition Accompanied Patient To Recovery: Yes Indications patient was a 23-year-old G1, P0 at 39 weeks and 3 days of gestation who was admitted on August 26, 2024 for induction of labor at term due to maternal request. She has received cervical ripening followed by IV oxytocin, epidural, AROM. She progressed to full dilatation this morning, pushed for 3 hours with no success and rested for about an hour and started to push again. Unable to deliver the head despite good pushing efforts. Decisions was made to proceed with primary . She understood the risks and benefits and signed an informed consent. Description of Procedure Patient was taken to operating room, labor epidural anesthesia was checked to be adequate. She was placed in dorsal supine position with a leftward tilt. She was prepared and draped in usual sterile fashion. A financial skin incision was made and carried through to the underlying layer of fascia with the Bovie. Fascia was incised in the midline and incision was extended laterally with the help of Boston scissors. Then the upper aspect of the fascial incision was grasped with 2 Daryl clamps elevated the underlying rectus muscles were dissected off sharply with Boston scissors. Same thing was done on the lower inc ision. Then the muscles were in the midline, peritoneum was identified grasped with 2 pickups and entered sharply with Metzenbaum scissors. Peritoneal incision was extended superior and inferiorly with good visualization of the bladder. The bladder blade was inserted. Vesicouterine peritoneum was identified, grasped with pickups and entered sharply with Metzenbaum scissors, bladder flap was created digitally and bladder blade was reinserted. Uterus was incised in transverse fashion, incision was extended laterally, membranes were ruptured and clear fluid was obtained. Baby's head was stuck in vagina, it was pushed back up by her nurse and then I could break the seal and bring it up to incision, then it was delivered without difficulty, followed by shoulders and body with minimal traction without faculty. Mouth and nose were suctioned there was dried on the field he was vigorously crying and moving. The cord was clamped times and cut at 1 minute delay and then the was handed off to the pediatric team. Then the placenta was delivered manually as intact and complete. Uterus was externalized and cleared of all clots and debris's. Uterine incision was repaired with 0 Vicryl in a running locked fashion, second umbricating layer was placed with the same suture in running locked fashion. Excellent hemostasis achieved. Cul-de-sac and the pelvis was irrigated with warm normal saline and suctioned. Incision was checked of anesthetic again. Uterus was returned to the abdomen, parietal peritoneum was reapproximated with 3-0 Vicryl in a running fashion and the muscles were reapproximated in the same suture in a running fashion. All of the fascia and rectus muscles were hemostatic. Rectus fascia was reapproximated with 0 Vicryl starting from both columns meeting in the midline. Subcuticular fat tissue was brought together with 2-0 Vicryl in a running fashion, skin was closed with 4-0 Monocryl in a subcuticular cuticular fashion. The mom and baby tolerated procedure well. Sponge needle instrument count was correct x3. she was given 2 g of cefazolin and 500 mg of Azithromycin before surgery. No complications happened, I was present during whole procedure. My surveyor instrument assistant was needed for retraction, hemostasis and aid during delivery of infant I attest to the content of the Intraoperative Record and any orders documented therein. Any exceptions are noted below.
[2024-08-28] MEDS: KETOROLAC 30 MG/ML VIAL ONE (16:47)
[2024-08-28] MEDS: KETOROLAC 30 MG/ML VIAL IV SCH (16:47)
--- NOTE | 2024-08-28 17:28 | Obstetrical Progress Note ---
Date of Service August 28, 2024 Assessment & Plan Admission and Anticipated Discharge Date Admission Date: August 26, 2024 Subjective Patient is in recovery No complaints, feels hungry Holding her baby, very happy and appreciative. VSS Afebrile Abd soft, NT, fundus firm below U Lochia minimal UOP adequate Explained about surgery Continue to monitor closely Orders were relayed to her nurse, Marleni. Results & Data Vital Signs (Past 12 Hours) Vital Signs Temp Pulse Resp BP Pulse Ox 08/28/24 17:23 88 99 08/28/24 17:20 20 08/28/24 17:19 86 117/81 08/28/24 17:18 86 99 08/28/24 17:13 92 H 100 08/28/24 17:10 20 08/28/24 17:09 94 H 121/85 08/28/24 17:08 94 H 100 08/28/24 17:03 98 H 100 08/28/24 17:00 20 08/28/24 16:59 100 H 119/82 08/28/24 16:58 102 H 100 08/28/24 16:53 123 H 100 08/28/24 16:50 20 08/28/24 16:49 89 117/79 08/28/24 16:48 97 H 100 08/28/24 16:43 107 H 100 08/28/24 16:40 20 08/28/24 16:39 104 H 115/71 08/28/24 16:38 110 H 100 08/28/24 16:33 103 H 100 08/28/24 16:30 37.7 C H 20 08/28/24 16:29 108 H 110/57 L 08/28/24 16:28 117 H 100 08/28/24 15:14 127 H 95 08/28/24 15:09 124 H 95 08/28/24 15:04 132 H 95 08/28/24 15:03 126 H 125/74 08/28/24 14:59 137 H 96 08/28/24 14:54 139 H 97 08/28/24 14:50 134 H 124/77 08/28/24 14:49 131 H 96 08/28/24 14:44 115 H 97 08/28/24 14:39 119 H 97 08/28/24 14:36 110 H 88 L 08/28/24 14:35 109 H 110/76 08/28/24 14:34 119 H 97 08/28/24 14:31 20 08/28/24 14:31 20 08/28/24 14:29 106 H 96 08/28/24 14:24 108 H 97 08/28/24 14:19 119 H 96 08/28/24 14:14 110 H 96 08/28/24 14:09 131 H 94 08/28/24 14:04 95 08/28/24 14:04 123 H 08/28/24 14:04 113 H 124/60 08/28/24 13:59 117 H 95 08/28/24 13:54 122 H 93 08/28/24 13:49 95 08/28/24 13:49 124 H 08/28/24 13:49 120 H 132/77 08/28/24 13:44 122 H 94 08/28/24 13:39 117 H 94 08/28/24 13:34 120 H 95 08/28/24 13:33 121 H 133/75 08/28/24 13:30 20 08/28/24 13:30 37.0 C 20 08/28/24 13:29 118 H 96 08/28/24 13:24 149 H 94 08/28/24 13:19 116 H 95 08/28/24 13:14 115 H 94 08/28/24 13:09 111 H 95 08/28/24 13:04 125 H 95 08/28/24 12:59 138 H 96 08/28/24 12:58 115 H 114/71 08/28/24 12:54 123 H 95 08/28/24 12:50 114 H 84 L 08/28/24 12:48 126 H 98 08/28/24 12:43 108 H 98 08/28/24 12:38 113 H 99 08/28/24 12:33 111 H 97 08/28/24 12:30 20 08/28/24 12:30 20 08/28/24 12:28 108 H 98 08/28/24 12:23 113 H 97 08/28/24 12:18 113 H 96 08/28/24 12:13 112 H 97 08/28/24 12:08 111 H 98 08/28/24 12:03 102 H 96 08/28/24 11:58 114 H 96 08/28/24 11:53 116 H 96 08/28/24 11:48 116 H 96 08/28/24 11:43 121 H 96 08/28/24 11:38 117 H 96 08/28/24 11:33 127 H 95 08/28/24 11:28 117 H 95 08/28/24 11:23 117 H 94 08/28/24 11:18 114 H 95 08/28/24 11:13 131 H 96 08/28/24 11:08 123 H 93 08/28/24 11:03 136 H 96 08/28/24 11:01 20 08/28/24 11:01 20 08/28/24 10:59 130 H 87 L 08/28/24 10:58 128 H 94 08/28/24 10:53 166 H 99 08/28/24 10:48 150 H 98 08/28/24 10:46 20 08/28/24 10:46 20 08/28/24 10:43 120 H 95 08/28/24 10:38 149 H 96 08/28/24 10:33 127 H 95 08/28/24 10:31 20 08/28/24 10:31 20 08/28/24 10:28 136 H 95 08/28/24 10:27 122 H 121/62 08/28/24 10:23 124 H 96 08/28/24 10:18 151 H 97 08/28/24 10:16 20 08/28/24 10:16 37.0 C 20 08/28/24 10:13 158 H 96 08/28/24 10:08 121 H 95 08/28/24 10:03 127 H 96 08/28/24 09:58 161 H 97 08/28/24 09:53 126 H 95 08/28/24 09:48 149 H 99 08/28/24 09:46 20 08/28/24 09:46 20 08/28/24 09:43 120 H 97 08/28/24 09:11 109 H 96 08/28/24 09:10 121 H 90 08/28/24 09:06 109 H 98 08/28/24 09:05 107 H 84 L 08/28/24 09:01 115 H 97 08/28/24 08:58 136 H 86 L 08/28/24 08:56 116 H 96 08/28/24 08:54 20 08/28/24 08:54 37.0 C 20 08/28/24 08:51 122 H 95 08/28/24 08:46 112 H 95 08/28/24 08:41 155 H 88 L 08/28/24 08:39 136 H 87 L 08/28/24 08:36 154 H 97 08/28/24 08:35 117 H 122/71 08/28/24 08:33 120 H 82 L 08/28/24 08:31 138 H 20 97 08/28/24 08:26 137 H 86 L 08/28/24 08:21 75 L 08/28/24 08:21 123 H 08/28/24 08:21 119 H 80 L 08/28/24 08:20 134 H 113/65 08/28/24 08:16 142 H 99 08/28/24 08:11 129 H 98 08/28/24 08:06 143 H 100 08/28/24 08:04 126 H 115/76 08/28/24 08:01 126 H 20 98 08/28/24 07:56 132 H 97 08/28/24 07:51 116 H 100 08/28/24 07:50 108 H 120/81 08/28/24 07:46 111 H 100 08/28/24 07:41 111 H 97 08/28/24 07:37 114 H 119/82 08/28/24 07:36 105 H 98 08/28/24 07:35 36.8 C 20 08/28/24 07:34 127 H 89 L 08/28/24 07:31 114 H 98 08/28/24 07:30 20 08/28/24 07:30 20 08/28/24 07:26 113 H 99 08/28/24 07:21 116 H 99 08/28/24 07:19 111 H 119/80 08/28/24 07:16 112 H 98 08/28/24 07:11 121 H 100 08/28/24 07:08 119 H 89 L 08/28/24 07:06 121 H 100 08/28/24 07:05 117 H 120/76 08/28/24 07:01 128 H 99 08/28/24 06:56 112 H 100 08/28/24 06:51 115 H 99 08/28/24 06:50 108 H 88 L 08/28/24 06:46 115 H 100 08/28/24 06:41 121 H 100 08/28/24 06:36 100 08/28/24 06:36 114 H 08/28/24 06:36 117 H 126/84 08/28/24 06:31 114 H 100 08/28/24 06:26 106 H 100 08/28/24 06:21 105 H 100 08/28/24 06:20 96 H 115/58 L 08/28/24 06:19 115 H 87 L 08/28/24 06:16 105 H 100 08/28/24 06:11 103 H 98 08/28/24 06:06 90 97 08/28/24 06:05 85 94/52 L 08/28/24 06:01 85 96 08/28/24 05:56 79 95 08/28/24 05:51 76 95 08/28/24 05:50 75 87/53 L 08/28/24 05:46 75 95 08/28/24 05:41 77 95 08/28/24 05:36 96 H 95 08/28/24 05:35 92 H 94/52 L 08/28/24 05:31 75 93
[2024-08-28] MEDS: ACETAMINOPHEN 500 MG TAB PO SCH (17:36)
[2024-08-28] MEDS: CITRIC ACID/SODIUM CITRATE 15 ML UDC PO SCH (17:41)
[2024-08-28] MEDS: DIPHTHER/TETAN/PERTUS Vaccine (Tdap, Adol/Adult) 0.5mL IM ONE (17:41)
[2024-08-28] MEDS ORDERED: METHYLERGONOVINE MALEATE 0.2 MG TAB PO SCH (18:00)
[2024-08-28] MEDS: METHYLERGONOVINE MALEATE 0.2 MG TAB PO SCH (18:07)
[2024-08-28] MEDS: metroNIDAZOLE 500 MG TAB PO SCH (18:07)
[2024-08-28] MEDS: OXYTOCIN 30 UNITS in D5W AND LACTATED RINGERS 1,000 ML IV SCH (18:10)
[2024-08-28] MEDS: SIMETHICONE 80 MG CHEW PO SCH (22:13)
[2024-08-28] MEDS: DOCUSATE SODIUM 100 MG CAP PO SCH (22:14)
[2024-08-28] MEDS: ACETAMINOPHEN 325 MG TAB PO SCH (23:10)
[2024-08-28] MEDS: ceFAZolin 2000MG 2,000 MG/15 ML SYR IV SCH (23:10)
[2024-08-29] MEDS: OXYTOCIN 20 UNITS/LR 1,002 ML IV SCH (02:23)
[2024-08-29] MEDS: LACTATED RINGER'S 500 ML IV ONE (02:23)
[2024-08-29] MEDS: diphenhydrAMINE 50 MG/ML VIAL IV PRN ×2 (02:37→17:09)
[2024-08-29 07:04] LABS: Basophils # (auto) 0.02 K/uL (0.00-0.20); Basophils % (auto) 0.1 %; Eosinophils # (auto) 0.17 K/uL (0.00-0.50); Eosinophils % (auto) 1.1 %; Hematocrit (blood only) 29.4 % (37.0-47.0); Immature Granulocytes # (auto) 0.09 K/uL (0.01-0.20); Immature Granulocytes % (auto) 0.6 %; Lymphocytes # (auto) 2.05 K/uL (1.20-3.40); Lymphocytes % (auto) 12.8 %; Mean Corpuscular Hemoglobin 30.8 pg (25.0-34.0); Mean Corpuscular Volume 90.5 fL (80.0-100.0); Mean Platelet Volume 10.9 fL (9.4-12.4); Monocytes # (auto) 0.89 K/uL (0.11-0.59); Monocytes % (auto) 5.6 %; Neutrophils # (auto) 12.76 K/uL (1.40-6.50); Neutrophils % (auto) 79.8 %; Platelet Count 155 K/uL (130-400); RDW Standard Deviation 42.5 fL (36.4-46.3); Red Blood Count 3.25 M/uL (4.20-5.40); White Blood Count 15.98 K/ul (4.8-10.8)
[2024-08-29] MEDS: PRENATAL VITAMIN 1 TAB PO SCH (08:37)
[2024-08-29] MEDS: FERROUS SULFATE 325 MG TAB PO SCH (08:37)
--- NOTE | 2024-08-29 11:58 | Obstetrical Progress Note ---
Date of Service August 29, 2024 Assessment & Plan Admission and Anticipated Discharge Date Admission Date: August 26, 2024 Subjective abdomen soft and non tender bandage is clean and dry no calf tenderness ambulating well vaginal bleeding scant hgb 10.0 bowel sounds present hypoactive Results & Data Vital Signs (Past 12 Hours) Vital Signs Temp Pulse Resp BP Pulse Ox O2 Del Method 08/29/24 10:00 18 99 08/29/24 09:00 18 99 08/29/24 07:50 37 C 91 H 18 103/71 97 Room Air 08/29/24 07:50 18 97 08/29/24 06:44 14 98 08/29/24 05:00 16 100 08/29/24 04:00 16 97 08/29/24 03:00 16 98 08/29/24 02:24 36.8 C 79 18 117/81 98 Room Air 08/29/24 02:15 14 100 08/29/24 01:00 14 98 08/29/24 00:00 16 96
[2024-08-29] MEDS ORDERED: Nursing to Pharmacy Communication SCH ×2 (13:00→17:00)
[2024-08-29] MEDS ORDERED: KETOROLAC 30 MG/ML VIAL IV PRN (16:33)
[2024-08-29] MEDS: IBUPROFEN 600 MG TAB PO SCH (17:07)
[2024-08-29] MEDS: bisacodyL 5 MG TABEC PO SCH (21:10)
[2024-08-29] MEDS: oxyCODONE HCL IR 5 MG TAB (IMMEDIATE RELEASE) PO PRN (23:31)
[2024-08-30] MEDS: LACTATED RINGER'S 1,000 ML IV SCH ×3 (01:22→01:24)
[2024-08-30] MEDS: MoRPHine SULFATE PF 1 MG/ML 10 ML AMP/VIAL EPI ONE (01:23)
[2024-08-30] MEDS: MEASLES, MUMPS & RUBELLA VIRUS VACCINE (MMR) 0.5ML VIAL SQ ONE (01:24)
[2024-08-30] MEDS: SODIUM CHLORIDE 0.9% 1,000 ML IV SCH (01:25)
[2024-08-30 06:18] LABS: Basophils # (auto) 0.04 K/uL (0.00-0.20); Basophils % (auto) 0.4 %; Eosinophils # (auto) 0.38 K/uL (0.00-0.50); Eosinophils % (auto) 3.3 %; Hematocrit (blood only) 25.2 % (37.0-47.0); Hemoglobin 8.5 g/dl (12.0-16.0); Immature Granulocytes # (auto) 0.13 K/uL (0.01-0.20); Immature Granulocytes % (auto) 1.1 %; Lymphocytes # (auto) 1.92 K/uL (1.20-3.40); Lymphocytes % (auto) 16.9 %; Mean Corpuscular Hemoglobin 30.5 pg (25.0-34.0); Mean Corpuscular Hgb Conc 33.7 g/dL (32.0-36.0); Mean Corpuscular Volume 90.3 fL (80.0-100.0); Mean Platelet Volume 11.2 fL (9.4-12.4); Monocytes # (auto) 0.74 K/uL (0.11-0.59); Monocytes % (auto) 6.5 %; Neutrophils # (auto) 8.15 K/uL (1.40-6.50); Neutrophils % (auto) 71.8 %; Platelet Count 161 K/uL (130-400); RDW Coefficient of Variation 13.7 % (11.5-14.5); RDW Standard Deviation 44.7 fL (36.4-46.3); Red Blood Count 2.79 M/uL (4.20-5.40); White Blood Count 11.36 K/ul (4.8-10.8)
--- NOTE | 2024-08-30 09:47 | Obstetrical Progress Note ---
Date of Service August 30, 2024 Assessment & Plan Admission and Anticipated Discharge Date Admission Date: August 26, 2024 Subjective abdomen soft and non tender passing gas incision is clean and dry no calf tenderness ambulating well vaginal bleeding scant hgb 8.5 afebrile Results & Data Vital Signs (Past 12 Hours) Vital Signs Temp Pulse Resp BP O2 Del Method 08/30/24 01:30 36.7 C 75 18 103/66 Room Air
[2024-08-30] MEDS ORDERED: bisacodyL 10 MG SUPP PR PRN (16:33)
[2024-08-30] MEDS: IBUPROFEN 600 MG TAB PO PRN (17:09)
[2024-08-31] MEDS: ACETAMINOPHEN 325 MG TAB PO PRN (02:54)
[2024-08-31 06:27] LABS: Hematocrit (blood only) 24.2 % (37.0-47.0); Hemoglobin 7.9 g/dl (12.0-16.0)
[2024-08-31 08:50] VITALS: BP 114/78; PULSE 85; RESP 20; TEMP 98.6; O2SAT 99
--- NOTE | 2024-08-31 10:41 | Obstetrical Progress Note ---
Date of Service August 31, 2024 Subjective Ambulation: ambulating normally Voiding: no voiding problems Passing Gas:: Yes Diet Tolerance:: regular diet Lochia:: Small Feeding Type:: breast feeding Current Pain Level(1-10): 0 doing well Physical Exam Constitutional WD/WN, vitals as above Gastrointestinal (Abdomen) Inspection/Auscultation: abdomen normal to inspection incision c/d/i fundus firm below U. Musculoskeletal Extremities: extremities normal to inspection Skin no rashes, warm and dry Neurologic patellar DTR's 2+ bilat, sensation intact Psychiatric A+Ox3, euthymic affect Results & Data Vital Signs (Past 12 Hours) Vital Signs Temp Pulse Resp BP Pulse Ox O2 Del Method 08/31/24 07:30 37.0 C 85 20 114/78 99 Room Air 08/30/24 22:53 36.8 C 80 18 113/76 98 Room Air Laboratory Results 08/26/24 08/28/24 08/29/24 08:55 15:08 06:38 WBC 9.13 20.24 H 15.98 H RBC 4.03 L 4.03 L 3.25 L Hgb 12.4 12.1 10.0 L Hct 36.1 L 35.5 L 29.4 L MCV 89.6 88.1 90.5 MCH 30.8 30.0 30.8 MCHC 34.3 34.1 34.0 RDW Std Deviation 42.3 41.2 42.5 RDW Coeff of Luci 13.0 13.1 13.0 Plt Count 196 176 155 MPV 11.4 11.0 10.9 Immature Gran % (Auto) 0.6 Neut % (Auto) 79.8 Lymph % (Auto) 12.8 Lawrence % (Auto) 5.6 Eos % (Auto) 1.1 Baso % (Auto) 0.1 Neut # (Auto) 12.76 H Lymph # (Auto) 2.05 Lawrence # (Auto) 0.89 H Eos # (Auto) 0.17 Baso # (Auto) 0.02 Immature Gran # (Auto) 0.09 Treponema pallidum Ab Negative Blood Type O Positive Antibody Screen NEGATIVE 08/30/24 08/31/24 05:30 05:50 WBC 11.36 H RBC 2.79 L Hgb 8.5 L 7.9 L Hct 25.2 L 24.2 L MCV 90.3 MCH 30.5 MCHC 33.7 RDW Std Deviation 44.7 RDW Coeff of Luci 13.7 Plt Count 161 MPV 11.2 Immature Gran % (Auto) 1.1 Neut % (Auto) 71.8 Lymph % (Auto) 16.9 Lawrence % (Auto) 6.5 Eos % (Auto) 3.3 Baso % (Auto) 0.4 Neut # (Auto) 8.15 H Lymph # (Auto) 1.92 Lawrence # (Auto) 0.74 H Eos # (Auto) 0.38 Baso # (Auto) 0.04 Immature Gran # (Auto) 0.13 Treponema pallidum Ab Blood Type Antibody Screen
--- NOTE | 2024-09-01 17:59 | Discharge Summary ---
Date of Service September 01, 2024 Admission HPI Per Admitting Provider Patient is a 23-year-old G1, P0 at 39 weeks and 1 day gestation who was admitted for scheduled induction of labor at term. She has no complaints other than being nervous and scared about labor. Denies contractions, leakage of fluid, vaginal bleeding. She reports good movements. Her has been uncomplicated except GBS positive. She had chest pain shortness of breath few days ago and presented to the ER where the workup was negative she was told that this could be asthma and anxiety related. She has not used her asthma inhaler for the last 5 years until last visit to the ER. Now she is using daily in the morning and she feels better. She denies any other medical problems nor surgeries. Discharge Data Consultations 08/26/24 08:24 Consult Anesthesiology Stat Procedures Performed Operation Date: 08/28/24 15:20 Actual Procedures p Section in LD for live male infant at 1547 - Aspen Davila MD Hospital Course (1) Encounter for induction of labor: patient was a 23-year-old G1, P0 at 39 weeks and 3 days of gestation who was admitted on August 26, 2024 for induction of labor at term due to maternal request. She has received cervical ripening followed by IV oxytocin, epidural, AROM. She had slow progress in her cervix as well as stational had on August 27. She progressed to full dilatation on 08/28 morning, Then she pushed for 3 hours with no success and rested for about an hour and started to push again. Unable to deliver the head despite good pushing efforts. heart rate had been category 1 during induction as well as labor and second stage. Decisions was made to proceed with primary . She understood the risks and benefits and signed an informed consent. She delivered a viable male infant via primary without complications. See dictated op note for details. On postop recovery patient was doing well, vital signs stable afebrile, bleeding was minimal. Postop day #1 patient was doing well, vital signs stable afebrile, H&H was stable, physical exam was unremarkable, incision was clean dry intact bleeding was minimal. On postop day #2 and 3 patient was doing well, vital signs stable afebrile, ambulating, tolerating regular diet, bleeding was minimal and physical exam was unremarkable. Patient desired to be discharged on August 31. Discharge instructions were given when to call, prescriptions were written for pain, she is to be seen in office in a week. All questions were answered. (2) with 39 completed weeks gestation: (3) Failed induction of labor, delivered: (4) Status post primary low transverse section: (5) Arrest of descent, delivered, current hospitalization: (6) GBS (group B Streptococcus carrier), +RV culture, currently :
== END 2024-08-31 13:30 | disposition home or self-care (01) | DRG 788 ==
LOC: 4S1 07:32 → 4E2 08-28 19:10
DX: Z3A.39 39 weeks gestation of pregnancy; Z91.018 Allergy to other foods; O62.0 Primary inadequate contractions; O99.52 Diseases of the respiratory system complicating childbirth; O63.1 Prolonged second stage (of labor); O99.824 Streptococcus B carrier state complicating childbirth; Z91.010 Allergy to peanuts; O33.8 Maternal care for disproportion of other origin; Z79.899 Other long term (current) drug therapy; Z37.0 Single live birth; J45.909 Unspecified asthma, uncomplicated